=== PATIENT | male | born 1975 | race African-American/Black ===

== ENCOUNTER 2017-09-09 12:33 | Emergency (ER) | payer OTHER ==
[~2017-09-09] VITALS: Ht 182.9 cm; Wt 101.2 kg
[~2017-09-09 12:33] MED LIST: ATORVASTATIN CA10 MG PO; LEVEMIR100 UNIT/1; LISINOPRIL10 MG; LISINOPRIL10 MG PO; NEXIUM40 MG PO; NOVOLOG100 UNITS/; PRAVASTATIN SOD10 MG PO
--- OUTSIDE RECORDS SUMMARY | 2017-09-09 12:36 | XMS REPORT | Summary of Care ---
Author Author Lisa Garcia M.A. Unknown Address [facility] Phone Unavailable Care Team Providers Care Russian Language Professor Name Role Phone JEFF BANGURA M.D. Unavailable Unavailable VIRGIL SOLIS, RIMA BARTON Unavailable Unavailable SHEIKH IRMA [place], NATHANAEL Unavailable Unavailable Unavailable Unavailable Functional Status Name Dates Details Functional status health issues are not documented Status: Name Dates Details Cognitive status health issues are not documented Status: Problems Name Dates Details Adhesive capsulitis of shoulder (726.0, M75.00) Status: Active Adhesive capsulitis of right shoulder (726.0, M75.01) Status: Active Medications Name Dates Details Pennsaid 2 % Transdermal Solution 2 pumps twice daily apply to both affected areas Quantity: 2 JEFF BANGURA M.D. * Start : 07-Aug-2014 Active 112 GM Pump Btl Lisinopril 40 MG Oral Tablet TAKE 1 TABLET DAILY. * Refills: 0 Active NexIUM CPDR TAKE 1 CAPSULE ONCE DAILY. * Refills: 0 Active NovoLOG 100 UNIT/ML Subcutaneous Solution INJECT SUBCUTANEOUSLY DIRECTED. * Refills: 0 Active Atorvastatin Calcium TABS TAKE 1 TABLET DAILY. * Refills: 0 Active Meloxicam 7.5 MG Oral Tablet TAKE 1 TABLET DAILY WITH FOOD. * Quantity: 30 Refills: 3 JEFF BANGURA M.D. * Start : 30-Apr-2017 Active MethylPREDNISolone 4 MG Oral Tablet ONE TABLE TWICE DAILY * Quantity: 28 Refills: 0 JEFF BANGURA M.D. * Start : 30-Apr-2017 Active Meloxicam 7.5 MG Oral Tablet TAKE 1 TABLET DAILY WITH FOOD. * Quantity: 30 Refills: 3 JEFF BANGURA M.D. * Start : 01-Jul-2017 Active Allergies and Adverse Reactions Name Dates Details Benadryl (Allergy) Status: Active Benadryl (Allergy) Reaction: Itching Status: Active Past Medical History Name Dates Details History of Bipolar disorder (296.80, F31.9) Status: Resolved History of diabetes mellitus (V12.29, Z86.39) Status: Resolved History of essential hypertension (V12.59, Z86.79) Status: Resolved History of hepatitis (V12.09, Z86.19) Status: Resolved History of hyperlipidemia (V12.29, Z86.39) Status: Resolved Procedures Procedure Dates Details Procedures not documented Immunization Name Dates Details Immunizations not documented Family History Name Dates Details Family history of systemic lupus erythematosus (V19.4, Z82.69) Status: Active Social History Name Dates Details - Status: Name Dates Details Former smoker Vital Signs Date Test Result Details No Known Vitals to report Results Date Description Value Details [id number] [U] XRAY SHOULDER MIN 2 VWS RIGHT [id number] XR SHOULDER MIN 2 VWS RIGHT Images acquired, not reported on this accession number. Plan of Care Name Dates Details Planned Observations Planned Goals not documented Instructions Name Dates Details Instructions not documented Encounters Appointment; JEFF BANGURA M.D. Encounter Diagnosis: Problem not documented On: 25-Nov-2015 11:30 Appointment; [facility] Encounter Diagnosis: Problem not documented On: 17-Feb-2016 11:00 Appointment; [facility] Encounter Diagnosis: Problem not documented On: 09-Mar-2016 9:30 Appointment; NATHANAEL LUCIANO M.D. Encounter Diagnosis: Problem not documented On: 23-Jun-2016 8:00 Appointment; ANNABELLE BAILEY M.D. Encounter Diagnosis: Problem not documented On: 30-Jul-2016 13:00 Appointment; [facility] Encounter Diagnosis: Problem not documented On: 14-Sep-2016 8:30 Appointment; [facility] Encounter Diagnosis: Problem not documented On: 12-Apr-2017 9:30 Appointment; ER[facility] Encounter Diagnosis: Problem not documented On: 20-Apr-2017 15:15 Appointment; JEFF BANGURA M.D. Encounter Diagnosis: Problem not documented On: 29-Apr-2017 15:15 Appointment; JEFF BANGURA M.D. Encounter Diagnosis: Problem not documented On: 01-Jul-2017 13:45 Appointment; JEFF BANGURA M.D. Encounter Diagnosis: Problem not documented On: 22-Jul-2017 14:30
[2017-09-09] MEDS ORDERED: ACETAMINOPHEN/CODEINE ELIX 120-12 MG/5 ML UDC PO ONE (13:00)
[2017-09-09] MEDS ORDERED: DEXAMETHASONE SOD PHOS 10 MG/1 ML VIAL INJ ONE (13:00)
[2017-09-09] MEDS: ALBUTEROL SULF 0.083% NEB SOLN 3 ML NEB NEB STA (13:10)
[2017-09-09] MEDS: IPRATROPIUM BROMIDE 0.02% 2.5 ML NEB NEB STA (13:10)
[2017-09-09 13:33] LABS: INFLUENZAE A&B ANTIGEN (RAPID) NEGATIVE (NEGATIVE); STREPTOCOCCUS GRP A ANTIGEN NEGATIVE (NEGATIVE)
--- NOTE | 2017-09-09 14:43 | Diagnostic Imaging Report ---
PROCEDURE: X-RAY CHEST, TWO VIEWS COMPARISON: 12/09/2016. INDICATIONS: CHEST PAIN FROM COUGH FINDINGS: LUNGS: No consolidations or edema. PLEURA: No effusions or pneumothorax. HEART \T\ MEDIASTINUM: The heart is within normal size-limits. BONES \T\ SOFT TISSUES: No acute findings. CONCLUSION: No acute thoracic abnormality. Dictated by: Marcos Hood M.D. on 09/09/2017 at 14:44 Electronically approved by: Marcos Hood M.D. on 09/09/2017 at 14:44
== END 2017-09-09 15:14 | disposition home or self-care (01) ==
LOC: ER 12:33
DX: J20.9 Acute bronchitis, unspecified (principal)
CPT/HCPCS: 71046; 83518; 87070; 87400; 93005; 94640; 96372; 99284; J1100

== ENCOUNTER 2017-09-14 12:18 | Emergency (ER) | payer OTHER ==
[~2017-09-14] VITALS: Ht 182.9 cm; Wt 101.2 kg
--- OUTSIDE RECORDS SUMMARY | 2017-09-14 12:21 | XMS REPORT ---
[facility] Address Unknown Phone Unavailable Care Team Providers Care Apartment Rental Agent Name Role Phone ARON ALEX Unavailable Unavailable Problems This patient has no known problems. Allergies, Adverse Reactions, Alerts This patient has no known allergies or adverse reactions. Medications This patient has no known medications. Results Test Description Test Time Test Comments Text Results Atomic Results Result Comments CHEST 2 VIEWS [place] [address] Patient Name: NESTOR HARDWICK MR #: [id number] : 1975 Age/Sex: 42/M Req #: [id number] Adm Physician: Ordered by: DARIAN LYON CASH APPLICATIONS COORDINATOR Report #: [id number] Location: ER Room/Bed: Procedure: [id number] DX/CHEST 2 VIEWS Exam Date: 09/09/17 Exam Time: 1420 REPORT STATUS: Signed PROCEDURE: X-RAY CHEST, TWO VIEWS COMPARISON: 12/09/2016. INDICATIONS: CHEST PAIN FROM COUGH FINDINGS: LUNGS: No consolidations or edema. PLEURA: No effusions or pneumothorax. HEART T MEDIASTINUM: The heart is within normal size-limits. BONES T SOFT TISSUES: No acute findings. CONCLUSION: No acute thoracic abnormality. Dictated by: Jeff Babin M.D. on 09/09/2017 at 14:44 Electronically approved by: Jeff Babin M.D. on 09/09/2017 at 14:44 Dictated By: JEFF BABIN MD 144 Transcribed By: RASHEED on 09/09/17 144 COPY TO: DARIAN LYON NP
--- OUTSIDE RECORDS SUMMARY | 2017-09-14 12:21 | XMS REPORT | Continuity of Care Document ---
Author Author [facility] Organization [facility] Address [address] [place] [address] Phone Unavailable Care Team Providers Care Geriatrics Physician Name Role Phone NONSTAFF PCP Unavailable Insurance Providers Guarantor Netsor Hardwick Address [address] [facility] [address] [place] [address] Email N Payer [employer] Policy Number [id number] Subscriber's Name Nestor Hardwick Relationship 18 Self / Same As Patient Group Name UNEMPLOYED Effective Date 08 Advance Directives Directive Response Recorded Date/Time Does the patient have an advance directive? No 07/06/13 8:11pm If yes, is advance directive on file with [facility]? No 07/06/13 8:11pm If not on file with [facility] will patient provide a copy? Yes 06/29/16 5:21pm Do you have a Directive to Physician? No 09/09/17 12:40pm Do you have a Medical Power of Battery Hand? No 09/09/17 12:40pm Do you have an out of hospital Do Not Resuscitate Order? No 09/09/17 12:40pm Do you have any special needs we should be aware of? No 09/09/17 12:40pm Do you have a support person here with you today? No 09/09/17 12:40pm Did patient receive Notice of Privacy Practices? Yes 09/09/17 12:40pm Did patient receive patient rights and responsibilities? 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 Unstable angina Unknown Medications Current Home Medications Medication Dose Units Route Directions Days Qty Instructions Start Date Esomeprazole Magnesium (Nexium) 40 Mg Capsule.dr 40 Mg Oral Daily PROTONIX THERAPEUTIC SUBSTITUTE FOR NEXIUM PER [facility] Insulin Aspart (Novolog) 100 Units/Ml Ml Lisinopril 10 Mg Tablet 40 Mg Oral Daily 30 Tab Pravastatin Sodium 10 Mg Tablet 40 Mg Oral Daily Past Home Medications Medication Directions Ordered Status Atorvastatin Calcium 10 Mg Tablet, Unknown Dose Oral Today At 9:00PM Discontinued Insulin Detemir (Levemir) 100 Unit/1 Ml Vial, Discontinued Lisinopril 10 Mg Tablet, Discontinued Social History Social History Problem Response Recorded Date/Time Onset Date Status Hx Psychiatric Problems Yes 12/09/2016 8:41pm Not Applicable Not Applicable Hx Depression Yes 12/09/2016 8:41pm Not Applicable Not Applicable Hx Alcohol Use No 12/09/2016 8:41pm Not Applicable Not Applicable Hx Substance Use Treatment No 12/09/2016 8:41pm Not Applicable Not Applicable Hx Physical Abuse No 12/09/2016 8:41pm Not Applicable Not Applicable Smoking Status Start Date Stop Date Current every day smoker Hospital Discharge Instructions No hospital discharge instruction information available. Plan of Care Discharge Date 09/09/17 3:14pm Disposition HOME, SELF-CARE Condition at Discharge Stable Instructions/Education Provided Bronchitis (Acute) - Adult Forms Provided Work/School Excuse Prescriptions See Medication Section Referrals Solomon Fonseca Additional Instructions/Education 1. increase oral fluids 2. tylenol and motrin as needed for fever pain 3. follow up with your doctor in 1-2 days without fail 4. return to ed as needed Functional Status No functional status information available. Allergies, Adverse Reactions, Alerts Allergen Type Severity Reaction Status Last Updated diphenhydramine HCl Allergy Unknown Active 12/09/16 Immunizations No immunization information available. Vital Signs Acute Vital Signs Vital Response Date/Time Temperature (Fahrenheit) 97.5 degrees F (97.6 - 99.5) 12/11/2016 12:00pm Pulse Pulse Rate (adult) 78 bpm (60 - 90) 09/09/2017 1:10pm Respiratory Rate 20 bpm (12 - 24) 09/09/2017 1:10pm Blood Pressure 127/78 mm Hg 12/11/2016 12:00pm Height 6 ft 0 in 09/09/2017 12:50pm Weight 223 lb 09/09/2017 12:50pm Body Mass Index 30.2 kg/m^2 09/09/2017 12:50pm Results Laboratory Results Test Name Result Units Flags Reference Collection Date/Time Result Date/ Time Comments White Blood Count 5.45 x10e3/uL 4.8-10.8 12/10/2016 6:05am 12/10/2016 6 :40am Red Blood Count 5.07 x10e6/uL 4.3-5.7 12/10/2016 6:05am 12/10/2016 6: 40am Hemoglobin 15.5 g/dL 14.0-18.0 12/10/2016 6:0512/10/2016 6:40am Hematocrit 42.0 % 38.2-49.6 12/10/2016 6:0512/10/2016 6:40am Mean Corpuscular Volume 82.8 fL 81-99 12/10/2016 6:05am 12/10/2016 6: 40am Mean Corpuscular Hemoglobin 30.6 pg 28-32 12/10/2016 6:05am 12/10/2016 6:40am Mean Corpuscular Hemoglobin Concent 36.9 g/dL H 31-35 12/10/2016 6:05am 12/10/2016 6:40am Red Cell Distribution Width 12.1 % 11.7-14.4 12/10/2016 6:05am 2016 6:40am Platelet Count 139 x10e3/uL L 140-360 12/10/2016 6:05am 12/10/2016 6: 40am Neutrophils (%) (Auto) 29.2 % L 38.7-80.0 12/10/2016 6:05am 12/10/2016 6 :40am Lymphocytes (%) (Auto) 61.3 % H 18.0-39.1 12/10/2016 6:0512/10/2016 6 :40am Monocytes (%) (Auto) 6.2 % 4.4-11.3 12/10/2016 6:05am 12/10/2016 6: 40am Eosinophils (%) (Auto) 2.0 % 0.0-6.0 12/10/2016 6:0512/10/2016 6: 40am Basophils (%) (Auto) 0.9 % 0.0-1.0 12/10/2016 6:05am 12/10/2016 6:40am IM GRANULOCYTES % 0.4 % 0.0-1.0 12/10/2016 6:05am 12/10/2016 6:40am Neutrophils # (Auto) 1.6 L 2.1-6.9 12/10/2016 6:05am 12/10/2016 6: 40am Lymphocytes # (Auto) 3.3 H 1.0-3.2 12/10/2016 6:0512/10/2016 6: 40am Monocytes # (Auto) 0.3 0.2-0.8 12/10/2016 6:05am 12/10/2016 6:40am Eosinophils # (Auto) 0.1 0.0-0.4 12/10/2016 6:05am 12/10/2016 6:40am Basophils # (Auto) 0.1 0.0-0.1 12/10/2016 6:05am 12/10/2016 6:40am Absolute Immature Granulocyte (auto 0.02 x10e3/uL 0-0.1 12/10/2016 6: 05am 12/10/2016 6:40am Prothrombin Time 12.7 seconds 11.9-14.5 12/10/2016 6:05am 12/10/2016 6: 53am Prothromb Time International Ratio 0.91 12/10/2016 6:05am 2016 6:53am Oral Anticoagulant Therapy INR Values: 1. Low Intensity Therapy 1.5 - 2.0 2. Moderate Intensity Therapy 2.0 - 3.0 3. High Intensity Therapy(1) 2.5 - 3.5 4. High Intensity Therapy(2) 3.0 - 4.0 5. Panic Value INR > 5.0 Activated Partial Thromboplast Time 25.6 seconds 23.8-35.5 12/09/2016 2: 10pm 12/09/2016 2:44pm Urine Color YELLOW YELLOW 12/09/2016 2:10pm 12/09/2016 2:42pm Urine Clarity CLEAR CLEAR 12/09/2016 2:10pm 12/09/2016 2:42pm Urine Specific [place] 1.020 1.010-1.025 12/09/2016 2:10pm 2016 2:42pm Urine pH 5 5 - 7 12/09/2016 2:10pm 12/09/2016 2:42pm Urine Leukocyte Esterase NEGATIVE NEGATIVE 12/09/2016 2:10pm 2016 2:42pm Urine Nitrite NEGATIVE NEGATIVE 12/09/2016 2:10pm 12/09/2016 2:42pm Urine Protein NEGATIVE NEGATIVE 12/09/2016 2:10pm 12/09/2016 2:42pm Urine Glucose (UA) 3+ H NEGATIVE 12/09/2016 2:10pm 12/09/2016 2:42pm Urine Ketones NEGATIVE NEGATIVE 12/09/2016 2:10pm 12/09/2016 2:42pm Urine Urobilinogen 0.2 mg/dL 0.2 - 1 12/09/2016 2:10pm 12/09/2016 2: 42pm Urine Bilirubin NEGATIVE NEGATIVE 12/09/2016 2:10pm 12/09/2016 2: 42pm Urine Blood NEGATIVE NEGATIVE 12/09/2016 2:1012/09/2016 2:42pm Urine WBC 0-5 /HPF 0-5 12/09/2016 2:10pm 12/09/2016 3:04pm Urine RBC 0-5 /HPF 0-5 12/09/2016 2:10pm 12/09/2016 3:04pm Urine Bacteria NONE /HPF NONE 12/09/2016 2:10pm 12/09/2016 3:04pm Urine Epithelial Cells NONE /LPF NONE 12/09/2016 2:1012/09/2016 3: 04pm Urine Mucus FEW H RARE 12/09/2016 2:10pm 12/09/2016 3:04pm Sodium Level 135 mmol/L L 136-145 12/10/2016 6:05am 12/10/2016 7:13am Potassium Level 3.9 mmol/L 3.5-5.1 12/10/2016 6:05am 12/10/2016 7:13am Chloride Level 103 mmol/L 98-107 12/10/2016 6:05am 12/10/2016 7:13am Carbon Dioxide Level 20 mmol/L L -12/10/2016 6:05am 12/10/2016 7: 13am Anion Gap 15.9 mmol/L 8-16 12/10/2016 6:05am 12/10/2016 7:13am Blood Urea Nitrogen 12 mg/dL 7-12/10/2016 6:05am 12/10/2016 7:13am Creatinine 1.27 mg/dL H 0.72-1.25 12/10/2016 6:05am 12/10/2016 7:13am BUN/Creatinine Ratio 9 6-12/10/2016 6:05am 12/10/2016 7:13am Estimat Glomerular Filtration Rate > 60 ML/MIN 60- 12/10/2016 6:05 7:13am Ranges were taken from the National Kidney Disease Education Program and the National Kidney Foundation literature. Reference ranges: 60 or greater: Normal 16-59 (for 3 consecutive months): Chronic kidney disease 15 or less: Kidney failure Glucose Level 306 mg/dL H 74-118 12/10/2016 6:05am 12/10/2016 7:13am Calcium Level 9.5 mg/dL 8.4-10.2 12/10/2016 6:0512/10/2016 7:13am Bedside Glucose 254 mg/dL H 70-120 12/11/2016 11:38am 12/11/2016 12: 05pm Meter ID: [id number] Hemoglobin A1c Percent 13.0 % H 4.0-7.0 12/10/2016 6:05am 12/10/2016 7: 13am Total Bilirubin 0.7 mg/dL 0.2-1.2 12/09/2016 2:10pm 12/09/2016 2:52pm Aspartate Amino Transf (AST/SGOT) 20 IU/L 5-34 12/09/2016 2:102016 2:52pm Alanine Aminotransferase (ALT/SGPT) 28 IU/L 0-55 12/09/2016 2:10 2:52pm Total Protein 7.4 g/dL 6.5-8.1 12/09/2016 2:10pm 12/09/2016 2:52pm Albumin 4.3 g/dL 3.5-5.0 12/09/2016 2:10pm 12/09/2016 2:52pm Globulin 3.1 g/dL 2.3-3.5 12/09/2016 2:10pm 12/09/2016 2:52pm Albumin/Globulin Ratio 1.4 0.8-2.0 12/09/2016 2:10pm 12/09/2016 2: 52pm Alkaline Phosphatase 99 IU/L 40-150 12/09/2016 2:10pm 12/09/2016 2: 52pm Triglycerides Level 793 MG/DL H 0-149 12/10/2016 6:05am 12/10/2016 7: 13am Cholesterol Level 163 MD/DL 0-199 12/10/2016 6:05am 12/10/2016 7:13am Less than 200 mg/dL Low Risk 201 - 239 mg/dL Borderline Risk 240 mg/dl and greater High Risk HDL Cholesterol 30 MG/DL L 40-60 12/10/2016 6:05am 12/10/2016 7:13am Cholesterol/HDL Ratio 5.4 H 3.9-4.7 12/10/2016 6:05am 12/10/2016 7: 13am B-Type Natriuretic Peptide < 10.0 pg/mL 0-100 12/09/2016 2:10pm 2016 3:33pm Creatine Kinase 136 IU/L 30-200 12/10/2016 6:05am 12/10/2016 7:13am Creatine Kinase MB 0.40 ng/mL 0.00-5.00 12/10/2016 6:05am 12/10/2016 7: 25am Troponin I 0.012 ng/mL 0-0.300 12/10/2016 6:05am 12/10/2016 7:25am Thyroid Stimulating Hormone (TSH) 3.319 uIU/mL 0.350-4.940 12/10/2016 6: 05am 12/10/2016 7:25am Influenza Virus Types A,B Antigen NEGATIVE NEGATIVE 09/09/2017 1:05pm 09/09/2017 1:33pm Group A Streptococcus Screen NEGATIVE NEGATIVE 09/09/2017 1:05pm 1:33pm Procedures Procedure Status Date Provider(s) TTE W/DOPPLER COMPLETE Completed 12/09/16 CRISTY NICHOLS MD L HRT ARTERY/VENTRICLE ANGIO Completed 12/09/16 SHADE NICHOLS MD X-ray of chest, two views Active 09/09/17 DARIAN LYON NP Encounters Encounter Location Arrival/Admit Date Discharge/Depart Date Attending Provider Departed Emergency Room [facility] 09/09/17 12:33pm 09/09 3:14pm ARON ALEX MD Discharged Inpatient (obs) [facility] 12/09/16 5:22pm 1:52pm HECTOR PACE MD
[2017-09-14] MEDS ORDERED: DEXAMETHASONE SOD PHOS 10 MG/1 ML VIAL INJ ONE (12:30)
[2017-09-14] MEDS ORDERED: LORATADINE 10 MG TAB PO ONE (12:30)
[2017-09-14] MEDS ORDERED: GUAIFENESIN/DEXTROMETHORPHAN LIQD 5 ML UDC NG ONE (12:30)
[2017-09-14] MEDS ORDERED: ALBUTEROL/IPRATROPIUM 3 ML NEB NEB ONE (12:30)
--- NOTE | 2017-09-14 13:57 | Diagnostic Imaging Report ---
PROCEDURE:CHEST 2 VIEWS TECHNIQUE:PA and lateral chest INDICATION:Cough; chest pain COMPARISON:Patients [facility], , CHEST 2 VIEWS, 09/09/2017, 15:14. FINDINGS: The lungs are clear and symmetrically inflated. No pleural effusions. Normal heart size, mediastinal contour and pulmonary vasculature. CONCLUSION: Stable normal chest. Dictated by: Frank Bullock M.D. on 09/14/2017 at 13:58 Electronically approved by: Frank Bullock M.D. on 09/14/2017 at 13:58
== END 2017-09-14 15:14 | disposition home or self-care (01) ==
LOC: ER 12:18
DX: J40 Bronchitis, not specified as acute or chronic (principal); J30.2 Other seasonal allergic rhinitis; Z87.891 Personal history of nicotine dependence; I10 Essential (primary) hypertension; E11.9 Type 2 diabetes mellitus without complications; E78.5 Hyperlipidemia, unspecified
CPT/HCPCS: 71046; 94640; 99284; J1100

== ENCOUNTER 2018-02-02 14:42 | Observation (INO) | payer OTHER ==
[~2018-02-02] VITALS: Ht 182.9 cm; Wt 108.0 kg
[2018-02-02] MEDS ORDERED: SODIUM CHLORIDE 0.9% 1000 ML BAG IV STA (14:59)
[2018-02-02] MEDS ORDERED: ASPIRIN 81 MG CHEW TAB PO ONE (15:00)
[2018-02-02 15:14] LABS: BASOPHILS % 0.7 % (0.0-1.0); EOSINOPHILS # (AUTO) 0.1 (0.0-0.4); EOSINOPHILS % 1.6 % (0.0-6.0); HEMATOCRIT 44.1 % (38.2-49.6); HEMOGLOBIN 15.6 g/dL (14.0-18.0); LYMPHOCYTES # (AUTO) 3.3 (1.0-3.2); LYMPHOCYTES % 60.2 % (18.0-39.1); MEAN CORPUSCULAR HEMOGLOBIN 29.8 pg (28-32); MEAN CORPUSCULAR HGB CONC 35.4 g/dL (31-35); MEAN CORPUSCULAR VOLUME 84.2 fL (81-99); MONOCYTES # (AUTO) 0.4 (0.2-0.8); MONOCYTES % 6.6 % (4.4-11.3); NEUTROPHILS # (AUTO) 1.7 (2.1-6.9); NEUTROPHILS % 30.7 % (38.7-80.0); PLATELET COUNT 146 x10e3/uL (140-360); RED BLOOD COUNT 5.24 x10e6/uL (4.3-5.7); RED CELL DISTRIBUTION WIDTH 12.1 % (11.7-14.4)
[2018-02-02 15:20] LABS: INR 1.11; PROTHROMBIN TIME 13.5 seconds (11.9-14.5)
[2018-02-02 15:21] LABS: PARTIAL THROMBOPLASTIN TIME 25.2 seconds (23.8-35.5)
[2018-02-02 15:30] LABS: ALANINE AMINOTRANSFERASE 30 IU/L (0-55); ALBUMIN 4.4 g/dL (3.5-5.0); ALBUMIN/GLOBULIN RATIO 1.5 (0.8-2.0); ALKALINE PHOSPHATASE 86 IU/L (40-150); ANION GAP 14.7 mmol/L (8-16); BLOOD UREA NITROGEN 14 mg/dL (7-26); BUN/CREATININE RATIO 12 (6-25); CALCIUM 9.3 mg/dL (8.4-10.2); CARBON DIOXIDE 22 mmol/L (22-29); CHLORIDE 108 mmol/L (98-107); CREATINE KINASE 563 IU/L (30-200); CREATININE, SERUM 1.21 mg/dL (0.72-1.25); EST GLOMERULAR FILTRATION RATE > 60 ML/MIN (60-); GLUCOSE 101 mg/dL (74-118); POTASSIUM 3.7 mmol/L (3.5-5.1); SODIUM 141 mmol/L (136-145)
--- NOTE | 2018-02-02 15:52 | Diagnostic Imaging Report ---
A single frontal view of the chest. HISTORY: Chest pain COMPARISON: None available. DISCUSSION: Portable technique, limits sensitivity of the exam. Tubes/Lines: None Lungs and pleura: The lungs appear well inflated. No evidence of a consolidative pneumonia or pulmonary alveolar edema. No definite pleural effusion or pneumothorax is identified. Heart and mediastinum: The cardiomediastinal silhouette appears unremarkable. Bones: No acute osseous lesion is identified, given this limited exam. IMPRESSION: No acute radiographic abnormality. Signed by: Dr. Andres Ramirez D.O., M.M.M. on 02/02/2018 3:48 PM
--- NOTE | 2018-02-02 16:41 | Diagnostic Imaging Report ---
Exam: Head CT without contrast History: Headache Comparison studies: None Technique: Axial images were obtained from the skull base to the vertex. Coronal and sagittal images reconstructed from the axial data. Dose modulation, iterative reconstruction, and/or weight based adjustment of the mA/kV was utilized to reduce the radiation dose to as low as reasonably achievable. Radiation dose: Total DLP: 921 mGy*cm. Estimated effective dose: DLP x 0.015 Intravenous contrast: None Findings: Scalp: No abnormalities. Bones: No fractures, blastic or lytic lesions. Brain sulci: Appropriate for age. Ventricles: Normal in size and configuration. No hydrocephalus. Extra-axial spaces: No masses, no fluid collection. Parenchyma: No abnormal densities. No masses, hemorrhage, acute or chronic vascular insults. Sellar/suprasellar region: No abnormalities. Craniocervical junction: Patent foramen magnum. No Chiari one malformation. Incidental findings: Incidental pneumatized petrous apices, a normal anatomical variant.. IMPRESSION: No intracranial abnormalities. Signed by: Dr. Marcos Davalos M.D. on 02/02/2018 4:37 PM
[2018-02-02] MEDS ORDERED: MORPHINE SULFATE 2 MG/ML SYR IV PRN (18:15)
[2018-02-02] MEDS ORDERED: DEXTROSE 50% SYRINGE 50 ML IV PRN (18:15)
[2018-02-02] MEDS: INSULIN REGULAR, HUMAN 100 UNIT/1 ML 3ML VIAL SQ SCH (21:00)
[2018-02-02 21:30] VITALS: BP 141/83
[2018-02-02 21:56] VITALS: BP 141/83
--- NOTE | 2018-02-02 22:22 | Consultation ---
DATE OF CONSULTATION: February 02, 2018 CARDIAC CONSULTATION REASON FOR CONSULTATION: Chest pain. HISTORY: A 42-year-old gentleman, very poor historian, known diabetic, hypertensive, hypercholesterolemic. Patient on treatment for many years using insulin. He was in his usual status of health. He was driving. He felt some headache and subsequently, when he was driving, he felt some chest pain, came to emergency room, admitted for further management. Cardiac consultation was obtained. I visited the patient, who is currently pain free. His headache also subsided. He is under quite a lot of stress. He does have typically exertional angina prior to his illness, although he had several episodes of chest pain. He had a cardiac catheterization in November 2016, but it showed 50% mid LAD lesion. Patient takes care of his kids. PAST MEDICAL HISTORY 1. Hypertension. 2. Diabetes mellitus for 20 years, on insulin. 3. Hypercholesterolemia. 4. Ex-smoker, stopped in 2015. SOCIAL HISTORY: He is ex-smoker. Quit in 2015. He does not drink alcohol. He takes care of his kids. FAMILY HISTORY: Mother doing well. Father of unknown cause. Grandfather and grandmother had history of myocardial infarction at young age. HOME MEDICATIONS 1. Nexium 40 mg a day. 2. Insulin sliding scale, use 2 injections per day. 3. Lisinopril 40 mg a day. 4. Pravastatin 40 mg a day. 5. Insulin use 2 injections per day. He does not know what type of insulin 18 units twice a day most of the time. ALLERGIES: BENADRYL WITH QUESTIONABLE ALLERGY TYPE. REVIEW OF SYSTEMS GENERAL: No fever. No chills. HEENT: Unremarkable. PULMONARY: No cough. No hemoptysis. CARDIAC: As per above. GI: No hematemesis. No melena. : No hematuria. No dysuria. HEMATOLOGICAL: No easy bruising or bleeding. ID: No infectious problem. NEUROLOGIC: No numbness, no tingling. SKIN: No rashes. PHYSICAL EXAM GENERAL: Well-built gentleman. VITALS: Height of 6 feet. Weight of 230 pounds. Blood pressure 130/80 equal in both arms. Heart rate of 70. Respiratory rate of 18. HEENT: Pupils are equal, reactive. NECK: No elevation of jugular venous pulsation. No bruit. CHEST: Clear to auscultation and percussion. HEART: PMI 5th left intercostal space, 1st and 2nd heart sounds. ABDOMEN: Soft with good bowel sounds. EXTREMITIES: No cyanosis or clubbing. No edema. NEUROLOGIC: Nonfocal. IMPRESSIONS AND PLAN 1. Patient came with headache. 2. Patient subsequently developed chest pain, seems totally atypical for coronary artery disease. 3. Patient is hypertensive, diabetic, hypercholesterolemic, although these are risk factors for coronary artery disease. Cardiac-romero, recommendation will do a stress test in the morning, will review his old cardiac cath from 2017. Will check lipid profile. Will put patient on aspirin. Serial cardiac enzymes. Job#: [id number] CQ
[2018-02-03 00:18] LABS: CREATINE KINASE MB < 1.00 ng/mL (0-4.3)
[2018-02-03 00:55] VITALS: BP 123/58
[2018-02-03 01:09] LABS: CREATINE KINASE 449 IU/L (30-200)
[2018-02-03 05:02] LABS: BASOPHILS # (AUTO) 0.1 (0.0-0.1); BASOPHILS % 0.9 % (0.0-1.0); EOSINOPHILS # (AUTO) 0.2 (0.0-0.4); EOSINOPHILS % 2.7 % (0.0-6.0); HEMATOCRIT 42.6 % (38.2-49.6); HEMOGLOBIN 14.7 g/dL (14.0-18.0); LYMPHOCYTES # (AUTO) 3.5 (1.0-3.2); LYMPHOCYTES % 64.2 % (18.0-39.1); MEAN CORPUSCULAR HEMOGLOBIN 29.7 pg (28-32); MEAN CORPUSCULAR HGB CONC 34.5 g/dL (31-35); MEAN CORPUSCULAR VOLUME 86.1 fL (81-99); MONOCYTES # (AUTO) 0.5 (0.2-0.8); MONOCYTES % 8.6 % (4.4-11.3); NEUTROPHILS # (AUTO) 1.3 (2.1-6.9); NEUTROPHILS % 23.6 % (38.7-80.0); PLATELET COUNT 120 x10e3/uL (140-360); RED BLOOD COUNT 4.95 x10e6/uL (4.3-5.7); RED CELL DISTRIBUTION WIDTH 12.2 % (11.7-14.4)
[2018-02-03 05:29] VITALS: BP 133/74
[2018-02-03 05:35] LABS: ALANINE AMINOTRANSFERASE 25 IU/L (0-55); ALBUMIN 3.7 g/dL (3.5-5.0); ALBUMIN/GLOBULIN RATIO 1.4 (0.8-2.0); ALKALINE PHOSPHATASE 83 IU/L (40-150); ANION GAP 14.8 mmol/L (8-16); BLOOD UREA NITROGEN 15 mg/dL (7-26); BUN/CREATININE RATIO 13 (6-25); CALCIUM 8.8 mg/dL (8.4-10.2); CARBON DIOXIDE 23 mmol/L (22-29); CHLORIDE 109 mmol/L (98-107); CHOL/HDL RATIO 6.8 (3.9-4.7); CHOLESTEROL 183 MD/DL (0-199); CREATINE KINASE 424 IU/L (30-200); CREATININE, SERUM 1.14 mg/dL (0.72-1.25); EST GLOMERULAR FILTRATION RATE > 60 ML/MIN (60-); GLUCOSE 166 mg/dL (74-118); HDL CHOLESTEROL 27 MG/DL (40-60); LDL CHOLESTEROL 101 MG/DL (60-130); POTASSIUM 3.8 mmol/L (3.5-5.1); SODIUM 143 mmol/L (136-145); TRIGLYCERIDES 276 MG/DL (0-149)
[2018-02-03 06:03] LABS: CREATINE KINASE MB < 1.00 ng/mL (0-4.3)
[2018-02-03 07:52] VITALS: BP 119/66
[2018-02-03 08:00] VITALS: BP 119/66
[2018-02-03] MEDS: LISINOPRIL 20 MG TAB PO SCH ×2 (08:22→08:24)
[2018-02-03] MEDS ORDERED: SODIUM CHLORIDE 0.9% 1000ML 1,000 ML IV SCH (08:45)
[2018-02-03] MEDS ORDERED: PANTOPRAZOLE SOD 40 MG TABEC PO SCH (09:00)
[2018-02-03] MEDS ORDERED: LISINOPRIL 10 MG TAB PO SCH (09:00)
[2018-02-03] MEDS ORDERED: NON-FORMULARY MEDICATION (Pravastatin Sodium 40 MG) PO SCH (09:00)
[2018-02-03] MEDS ORDERED: ASPIRIN 325 MG TAB EC PO SCH (09:00)
[2018-02-03] MEDS ORDERED: FAMOTIDINE 20 MG TAB PO SCH (09:00)
--- NOTE | 2018-02-03 09:08 | History and Physical ---
PRIMARY CARE PHYSICIAN: Dr. Argueta (sp?) CHIEF COMPLAINT: Headache and chest pain. HISTORY OF PRESENT ILLNESS: This is a 42-year-old man with history of hypertension, now developing left-sided chest pain without any radiation or shortness of breath. He did have mild dizziness and nausea. He continues to have diffuse headache at this time. He had a left heart catheterization about 1 year ago showed 50% blockage, but no stent was placed. PAST MEDICAL HISTORY: Coronary artery disease, hypertension, hyperlipidemia, diabetes mellitus type 2. PAST SURGICAL HISTORY: Left heart catheterization. ALLERGIES: PER ELECTRONIC MEDICAL RECORD. FAMILY/SOCIAL HISTORY: Patient is single. He has no alcohol or illicits. Does not work. Patient has a history of cigarette use. MEDICATIONS: Per electronic medical record. REVIEW OF SYSTEMS: Denies any shortness of breath, fever, chills, sweats, nausea, vomiting, diarrhea, vision changes. PHYSICAL EXAMINATION: VITAL SIGNS: Have been reviewed. GENERAL APPEARANCE: Tired-appearing man resting in bed. HEENT: Anicteric. CARDIOVASCULAR: Normal S1 and S2. No murmurs audible. LUNGS: Good breath sounds. ABDOMEN: Soft, nontender, nondistended. EXTREMITIES: No edema or calf tenderness. NEUROLOGICAL: Alert and oriented x3. Moving all extremities. SKIN: Dry. PSYCHIATRIC: Flat affect. LABS: Reviewed. MEDICATIONS: Reviewed. ASSESSMENT AND PLAN: This is a 42-year-old man. 1. Chest pain. 2. Acute rhabdomyolysis. 3. Diabetes mellitus type 2. 4. Hypertension. 5. History of cigarette use. 6. Hyperlipidemia. 7. Coronary artery disease. PLAN: 1. Rehydrate patient. 2. Will trend the enzyme. 3. Follow up stress testing. 4. Follow up CPK levels. 5. Continue PPI. 6. Utilize SCD. Job#: [id number]
[2018-02-03 11:25] VITALS: BP 124/72
[2018-02-03] MEDS: INSULIN REGULAR, HUMAN 100 UNIT/1 ML 3ML VIAL SQ SCH (11:30)
--- NOTE | 2018-02-03 12:16 | Cardiology Report ---
DATE OF STUDY: February 03, 2018 TITLE: CARDIAC STRESS TEST TECHNICAL DETAILS: The protocol is a Hammad with target heart rate of 155 per minute. RESULTS 1. Patient exercised for a total of 9 minutes and 1 second. 2. Heart rate increased from 73 to 155 per minute. 3. Blood pressure increased from 120/80 to 156/82. 4. No chest pain. 5. No EKG changes. IMPRESSION: Negative cardiac stress test with good exercise tolerance. Limitations are discussed and explained. Job#: [id number] SUB
[2018-02-03] MEDS ORDERED: ASPIR 8181 MG PO (12:35)
[2018-02-03 13:59] LABS: CREATINE KINASE 393 IU/L (30-200)
[2018-02-03] MEDS ORDERED: PRAVASTATIN 20 MG TAB PO SCH (21:00)
--- NOTE | 2018-02-04 06:07 | Discharge Summary ---
PRINCIPAL DIAGNOSES 1. Atypical chest pain. 2. Acute rhabdomyolysis. 3. Diabetes mellitus type 2. 4. Hypertension. 5. History of cigarette use. 6. Hyperlipidemia. 7. Coronary artery disease. SECONDARY DIAGNOSIS: Hypertension. CHIEF COMPLAINT: Chest pain. HISTORY OF PRESENT ILLNESS: A 42-year-old man with chest pain. Refer to H and P for further details. HOSPITAL COURSE: Patient was found to have chest pain. Cardiac enzymes were negative. Stress testing was obtained which was negative. Patient had elevated creatine kinase levels which improved from 563 down to 393. Patient was subsequently discharged home with plan to follow up with 1. Primary care doctor in 1 week. 2. Cardiology in 1 week. CONDITION ON DISCHARGE: Stable and improved. DISCHARGE LOCATION: Home. KAYLEE GAMBINO MD Job#: [id number]
== END 2018-02-03 13:05 | disposition home or self-care (01) ==
LOC: ER 14:42 → ERHOLD 18:01 → IMCU 20:55
PROVIDERS: ADMIT Internal Medicine; ATTEND Internal Medicine
DX: R07.89 Other chest pain (principal); G43.909 Migraine, unspecified, not intractable, without status migrainosus; G44.229 Chronic tension-type headache, not intractable; I10 Essential (primary) hypertension; E11.9 Type 2 diabetes mellitus without complications; E78.5 Hyperlipidemia, unspecified; Z88.8 Allergy status to other drugs, medicaments and biological substances; I25.10 Atherosclerotic heart disease of native coronary artery without angina pectoris; M62.82 Rhabdomyolysis; Z87.891 Personal history of nicotine dependence; E78.00 Pure hypercholesterolemia, unspecified; Z79.4 Long term (current) use of insulin
CPT/HCPCS: 36415 ×2; 70450; 71045; 80053 ×2; 80061; 82270; 82550 ×2; 82553 ×2; 82948 ×2; 83036; 84443; 84484 ×2; 85025 ×2; 85610; 85730; 93005; 93017; 99284; G0378 ×2; J7030 ×2; S0164

== ENCOUNTER 2018-07-29 11:57 | Emergency (ER) | payer OTHER ==
[~2018-07-29] VITALS: Ht 365.8 cm; Wt 108.0 kg
[~2018-07-29 11:57] MED LIST changes: +ASPIR 8181 MG PO
--- OUTSIDE RECORDS SUMMARY | 2018-07-29 12:01 | XMS REPORT | Summary of Care ---
Author Author [facility] Organization [facility] Address Unknown Phone Unavailable Encounter WILY Rivera(PIOTR) [id number] Date(s): 12/08/17 - 12/08/17 [facility] [address] [place] [address]- [facility] [phone] Encounter Diagnosis Perianal venous thrombosis (Final) - 12/14/17 Dietary counseling and surveillance (Final) - Type 2 diabetes mellitus with diabetic chronic kidney disease (Final) - Hypertensive chronic kidney disease with stage 1 through stage 4 chronic kidney disease, or unspecified chronic kidney disease (Final) - Chronic kidney disease, stage 2 (mild) (Final) - terminal operator (current) use of insulin (Final) - Discharge Disposition: Home or Self Care Attending Physician: Robbie Houston MD Referring Physician: Robbie Houston MD Vital Signs Most recent to 1 oldest [Reference Range]: Height 182.88 cm (12/08/17 10:33 AM) Blood Pressure 117/68 mmHg [90-140/60-90 mmHg] (12/08/17 10:33 AM) Respiratory Rate 16 BRMIN [14-20 BRMIN] (12/08/17 10:33 AM) Peripheral Pulse 81 bpm Rate [60-100 bpm] (12/08/17 10:33 AM) Weight 108.273 kg (12/08/17 10:33 AM) Body Mass Index 32.37 m2 (12/08/17 10:33 AM) Problem List Condition Effective Dates Status Health Status Informant Chronic Active constipation(Confirm ed) Chronic hepatitis Resolved C(Confirmed) CKD (chronic kidney Active disease), stage II(Confirmed) Hepatic Resolved cirrhosis(Confirmed) Diabetes mellitus Active type 2(Confirmed) Diabetes(Confirmed) Resolved Hypertension, Active essential(Confirmed) Hiatal hernia with Active GERD(Confirmed) Liver Active fibrosis(Confirmed) Hyperlipidemia(Confi Resolved rmed) Hypertension(Confirm Resolved ed) NAFLD (nonalcoholic Active fatty liver disease)(Confirmed) Obesity(Confirmed) Active Pain of perianal Active area(Confirmed) Allergies, Adverse Reactions, Alerts Substance Reaction Severity Status Benadryl Active Medications NIFEdipine 0.2% lidocaine 5% compound cream =1 appl, TOP, TID, Apply topically to affected area, # 30 gm, 1 Refill(s), payan d to pharmacy Start Date: 12/08/17 Stop Date: 01/05/18 Status: Ordered Results No data available for this section Immunizations Given and Recorded Vaccine Date Status Refusal Reason hepatitis B adult vaccine 02/17/16 Given hepatitis B adult vaccine 10/30/15 Given hepatitis B adult vaccine 07/18/15 Given Procedures No data available for this section Social History Social History Type Response Alcohol Never, Previous treatment: None. Smoking Status Former smoker; Type: Cigarettes; Exposure to Tobacco Smoke self; Cigarette Smoking Last 365 Days Yes; Reg Smoking Cessation Counseling No; Tobacco use per day: 10; Number of years: 25; entered on: 12/08/17 Assessment and Plan No data available for this section
--- OUTSIDE RECORDS SUMMARY | 2018-07-29 12:01 | XMS REPORT | Summary of Care ---
Author Author Sandee Rodriguez Organization Unknown Address Unknown Phone Unavailable Care Team Providers Care Addresser Name Role Phone JEFF BANGURA M.D. Unavailable Unavailable Sandee Rodriguez Unavailable Unavailable RIMA HERMAN MD Unavailable Unavailable SHEIKH IRMA NM, NATHANAEL Unavailable Unavailable WILLEM CORNEJO MD NM, JEFF Gordon Unavailable Unavailable Unavailable Unavailable Functional Status Name [...] 7.5 MG Oral Tablet TAKE 1 TABLET BY MOUTH EVERY DAY WITH FOOD * Quantity: 30 Refills: 0 JEFF BANGURA M.D. * Start : 04-Oct-2017 Active MethylPREDNISolone 4 MG Oral Tablet ONE [...] to report Results Date Description Value Details Results not documented Plan of Care Name Dates Details Planned Observations Planned Goals not documented Planned Encounters Appointment; JEFF BANGURA M.D. On: 07-Jul-2018 11:00 Instructions Name Dates Details Instructions not documented Encounters Appointment; NATHANAEL LUCIANO M.D. Encounter Diagnosis: Problem [...] Diagnosis: Problem not documented On: 22-Jul-2017 14:30 Appointment; ERAN CORDON Encounter Diagnosis: Problem not documented On: 05-Oct-2017 15:15 Appointment; ERAN CORDON Encounter Diagnosis: Problem not documented On: 23-Nov-2017 13:45 Appointment; CRISTINO UNDERWOOD M.D. Encounter Diagnosis: Problem not documented On: 08-Dec-2017 10:00 Appointment; ERAN CORDON Encounter Diagnosis: Problem not documented On: 21-Dec-2017 14:30 Appointment; CRISTINO UNDERWOOD M.D. Encounter Diagnosis: Problem not documented On: 19-Jan-2018 10:15 Appointment; JEFF BANGURA M.D. Encounter Diagnosis: Problem not documented On: 20-Jan-2018 14:00 Appointment; JEFF BANGURA M.D. Encounter Diagnosis: Problem not documented On: 16-Jun-2018 11:30
--- OUTSIDE RECORDS SUMMARY | 2018-07-29 12:01 | XMS REPORT | Continuity of Care Document ---
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 2018 [facility] F/U GI VISIT Active 11/24/2017 [facility] FOLLOW-UP Active 11/12/2017 [facility] F/U Active 03/19/2017 [facility] DDC-F/U VISIT Active 09/03/2016 [facility] CIRRHOSIS Active 08/28/2016 [facility] K74.60 - UNSPECIFIED CIRRHOSIS OF LIVER Active 08/12/2016 [facility] [place] DENTAL PAIN Active 05/17/[address] [facility] [address] HERNANDEZ PT Active 03/09/2016 [facility] FOLLOW UP Active 02/10/2016 [facility] Discharge Diagnosis: Other chest pain 12/22/2015 12/25/2015 [facility] CHEST PAIN Active 12/22/2015 [facility] INJ Active 10/30/2015 [facility] Discharge Diagnosis: Lower abdominal pain, unspecified 09/04/2015 09/07/2015 [facility] WEAKNESS/ DIZZINESS Active 09/04/2015 [facility] LIVER PROTOCOL DX:B18.2=CHRONIC VIRAL HE Active 07/02/2015 [facility] Discharge Diagnosis: Acute upper respiratory infection, unspecified 05/03/2015 05/06/2015 [facility] Discharge Diagnosis: Cough 05/03/2015 05/06/2015 [facility] FLU LIKE SYMPTONS Active 05/03/2015 [facility] BDDC- GASTRO-ESOPHAGEAL REFLUX DISEASE W Active 04/04/2015 [facility] 2 MONTH FOLLOW UP Active 04/04/2015 [facility] DDC-2 WK F/U VISIT Active 03/20/2015 [facility] CARDIAC CLEARANCE Active 10/01/2014 [facility] Discharge Diagnosis: Acute headache 09/29/2014 10/02/2014 [facility] Discharge Diagnosis: Hypertension 09/29/2014 10/02/2014 [facility] HYPERTENSION Active 09/28/2014 [facility] Discharge Diagnosis: Atypical chest pain 09/19/2014 09/22/2014 [facility] V02.62 - HEPATITIS C CAR Active 07/04/2014 [facility] Discharge Diagnosis: Abdominal pain 11/19/2013 11/21/2013 [facility] VOMITING Active 11/19/2013 [facility] HIGH BLOOD PRESSURE Active 09/26/2012 [facility] HEP C Active 07/30/2011 [facility] Chronic constipation Active Problem 2018 [facility] Chronic hepatitis C Resolved Problem 2018 [facility], [facility], [facility] [place] CKD , stage II(<span ID="[id number]">Confirmed</span>) Active Problem 2018 [facility], [facility] Hepatic cirrhosis Resolved Problem 2018 [facility], [facility], [facility] [place] Diabetes mellitus type 2 Active Problem 2018 [facility], [facility], [facility] [place] Diabetes Resolved Problem 2018 [facility], [facility], [facility] [place] Hypertension, essential Active Problem 2018 [facility], [facility] Hiatal hernia with GERD Active Problem 2018 [facility], [facility] Liver fibrosis Active Problem 2018 [facility] Hyperlipidemia Resolved Problem 2018 [facility], [facility], [facility] [place] Hypertension Resolved Problem 2018 [facility], [facility], [facility] [place] NAFLD (<span ID="[id number]">Confirmed</span>) Active Problem 2018 [facility], [facility] Obesity Active Problem 2018 [facility], [facility], [facility] [place] Pain of perianal area Active Problem 2018 [facility] Acid reflux Resolved Problem 04/23/2017 [facility] Hepatitis C Active Problem 02/20/2016 [facility] Hepatitis C Active Problem 03/09/2016 [facility], [facility] [place] Smoking Active Problem 09/17/2016 [facility] Final: Left lower quadrant pain 09/07/2015 [facility] Final: Diarrhea, unspecified 09/07/2015 [facility] Final: Fever, unspecified 09/07/2015 [facility] Final: Essential hypertension 09/07/2015 [facility] Final: Type 2 diabetes mellitus without complications 09/07/2015 [facility] Final: Unspecified cirrhosis of liver 09/07/2015 [facility] Final: Personal history of other infectious and parasitic diseases 09/07/2015 [facility] Final: Personal history of nicotine dependence 09/07/2015 [facility] Dietary counseling and surveillance 2018 [facility] Type 2 diabetes mellitus with diabetic chronic kidney disease 2018 [facility] Hypertensive chronic kidney disease with stage 1 through stage 4 chronic kidney disease, or unspecified chronic kidney disease 2018 [facility] Chronic kidney disease, stage 2 2018 [facility] long term care administrator use of insulin 2018 [facility] CHRONIC VIRAL HEPATITIS C Active [facility] Medications Medication Details Route Status Patient Instructions Ordering Provider Order Date Source Nifedipine =1 appl, TOP, TID, Apply topically to affected area, # 30 gm, 1 Refill(s), called to pharmacy Active 12/08/2017 [facility] POLYETHYLENE GLYCOL 3350 142 MG/ML Oral Solution [Miralax] 17 gm, PO, BID, X 30 day, # 1,020 gm, 11 Refill(s), Pharmacy: [facility]/pharmacy #[id number] Active 11/23/2017 [facility] Nifedipine =1 appl, TOP, TID, Apply topically to affected area, # 30 gm, 1 Refill(s), Pharmacy: [facility]/pharmacy #[id number] Active 11/23/2017 [facility] NovoLIN 70/30 SUB-Q, 0 Refill(s) Active 11/23/2017 [facility] NovoLog SUB-Q, TID-Before Meals, 0 Refill(s) Active 11/23/2017 [facility] atorvastatin PO, Daily, 0 Refill(s) Active 09/14/2016 [facility] Saline Flush 0.9% 10 mL, Route: IVP, Drug Form: INJ, Dosing Weight 115.455, kg, PRN, PRN Line Flush, Start date: 12/22/15 3:02:00 CDT, Duration: 30 day, Stop date: 01/21/16 3:01:00 CDTNotes: (Same as: BD Posiflush) Inactive 12/22/2015 [facility] Dicyclomine Hydrochloride 20 MG Oral Tablet [Bentyl] 20 mg=1 tab, PO, QID-Before Meals, PRN Abdominal Pain, # 20 tab, 0 Refill(s) Active 09/05/2015 [facility] Reglan 10 mg, Route: IVP, Drug form: INJ, ONCE, Dosing Weight 109.091, kg, Priority: STAT, Start date: 09/04/15 19:07:00 CDT, Stop date: 09/04/15 19:07:00 CDT Inactive 09/05/2015 [facility] Sodium Chloride 0.154 MEQ/ML Injectable Solution 1,000 mL, 1000 ml/hr, Infuse Over: 1 hr, Route: IV, 1,000, Drug form: INJ, ONCE, Priority: STAT, Dosing Weight 109.091 kg, Start date: 09/04/15 15:16:00 CDT, Duration: 1 doses or times, Stop date: 09/04/15 15:16:00 CDT Inactive 09/04/2015 [facility] Saline Flush 0.9% 10 mL, Route: IVP, Drug Form: INJ, Dosing Weight 109.091, kg, PRN, PRN Line Flush, Start date: 09/04/15 14:44:00 CDT, Duration: 30 day, Stop date: 10/04/15 14:43:00 CDTNotes: (Same as: BD Posiflush) Inactive 09/04/2015 [facility] Famotidine 20 mg, 2 mL, Route: IVP, Drug form: INJ, ONCE, Dosing Weight 109.091, kg, Priority: STAT, Start date: 09/04/15 14:44:00 CDT, Stop date: 09/04/15 14:44:00 CDTNotes: (Same as: Pepcid) Can be dilute in 5-10cc NS IVP: Slow IV push over at least 2 minutes. Inactive 09/04/2015 [facility] Ondansetron 4 mg, 2 mL, Route: IVP, Drug form: INJ, ONCE, Dosing Weight 109.091, kg, Priority: STAT, Start date: 09/04/15 14:44:00 CDT, Stop date: 09/04/15 14:44:00 CDTNotes: (Same as: Noel) MEDICATION WASTE Product Size: 4 mg Product Wasted: ___ mg Inactive 09/04/2015 [facility] Motrin 800 mg, Route: PO, Drug form: TAB, ONCE, Dosing Weight 109.091, kg, Priority: STAT, Start date: 09/04/15 14:35:00 CDT, Stop date: 09/04/15 14:35:00 CDT Inactive 09/04/2015 [facility] predniSONE 20 mg oral tablet 60 mg=3 tab, PO, Daily, Take 3 tablets for 60 mg dose, X 3 day, # 9 tab, 0 Refill(s), Pharmacy: [facility] [id number] Active 05/03/2015 [facility] benzonatate 200 MG Oral Capsule [Tessalon] 200 mg=1 cap, PO, TID, X 7 day, # 21 cap, 0 Refill(s), Pharmacy: [facility] [id number] Active 05/03/2015 [facility] 200 ACTUAT Albuterol 0.09 MG/ACTUAT Metered Dose Inhaler 2 puff, INHALATION, QID, PRN for wheezing, # 25 gm, 0 Refill(s), Pharmacy: [facility] [id number] Active 05/03/2015 [facility] Ribavirin 600 mg, PO, BID, 0 Refill(s) Active 04/04/2015 [facility] {2 (dasabuvir 250 MG Oral Tablet) / 2 (ombitasvir 12.5 MG / paritaprevir 75 MG / Ritonavir 50 MG Oral Tablet) } Pack [Viekira Son] 0 Refill(s) Active 04/04/2015 [facility] NovoLog SUB-Q, TID-Before Meals, 0 Refill(s) Active 04/04/2015 [facility] Metoclopramide 10 MG Oral Tablet [Reglan] 10 mg, 1 tab, Route: PO, Drug form: TAB, ONCE, Dosing Weight 104.545, kg, Start date: 09/29/14 0:28:00, Stop date: 09/29/14 0:28:00Notes: (Same as: Reglan) Take 30 min before meals Inactive 09/29/2014 [facility] tramadol hydrochloride 50 MG Oral Tablet [Ultram] 1 - 2 tabs, PO, Q4-6H, .(Type PRN Reason Here...), # 30 tab, 0 Refill(s) Active 11/20/2013 [facility] Zofran 4 mg, 2 mL, Route: IVP, Drug form: INJ, ONCE, Dosing Weight 100, kg, Priority: STAT, Start date: 11/19/13 19:41:00, Stop date: 11/19/13 19:41:00Notes: (Same as: Zofran) Inactive 11/20/2013 [facility] Carafate 2 gm, 20 mL, Route: PO, Drug form: SUSP, ONCE, Dosing Weight 100, kg, Start date: 11/19/13 19:41:00, Stop date: 11/19/13 19:41:00Notes: Enteral feeds may interfere with the absorption of this medicat ion. Shake well. Take 1 hr before or 2 hrs after antacids, dairy pdt, minerals & meals. (Same As: Carafate) Inactive 11/20/2013 [facility] GI cocktail 30 mL, Route: PO, Drug Form: SUSP, Dosing Weight 100, kg, ONCE, STAT, Start date: 11/19/13 19:41:00, Stop date: 11/19/13 19:41:00Notes: G.I. Cocktail=antacid with simethicone 22.5 mL - lidocaine visc ous 7.5 mL Inactive 11/20/2013 [facility] Allergies, Adverse Reactions, Alerts Substance Category Reaction Severity Reaction type Status Date Reported Comments Source Williamadryl Assertion Drug allergy Active [facility] Immunizations Immunization Date Given Site Status Last Updated Comments Source hepatitis B adult vaccine 02/17/2016 Right deltoid completed Kaiden [facility] 02/17/2016 Right deltoid completed Kaiden [facility] hepatitis B adult vaccine 10/30/2015 Right deltoid completed hKloe [facility], [facility] 10/30/2015 Right deltoid completed Khloe [facility] hepatitis B adult vaccine 07/18/2015 Left deltoid completed Mian [facility] 07/18/2015 Left deltoid completed Lambert [facility] Results Order Name Results Value Reference Range Date Interpretation Comments Source Liver w Liver vessels Doppler US Liver w Liver vessels Doppler US EXAM: US LIVER WITH DOPPLER DATE: 09/22/2017 10:14 AM CDT INDICATION: - w/ elastography ADDITIONAL INFORMATION: None. COMPARISON: None. TECHNIQUE: Multiplanar grayscale, color Doppler and spectral Doppler ultrasound images of the liver and upper abdomen were obtained. Elastography was performed. FINDINGS: Liver: Craniocaudal length: 14.2 cm. Echogenicity: Normal. Surface nodularity: Smooth Mass (size and location): None. Hepatic and portal vasculature: Hepatic artery: Patent with normal arterial waveform. The peak systolic velocity was 101 cm/s with an RI of 0.62. Right hepatic artery: Patent with normal arterial waveform. Left hepatic artery: Patent with normal arterial waveform. Portal veins: The portal vein is 1.3 cm in diameter. It has hepatopedal flow with a velocity of 35.6 cm/s. The right and left branches are patent. Hepatic veins: All 3 are patent and flow towards the IVC. Bile ducts: Common bile duct diameter: 4.5 mm Intrahepatic ducts: Normal. Gallbladder: Gallstones: None. Gallbladder sludge: None. Gallbladder wall: 1.8 mm in diameter. Pericholecystic fluid: None. Sonographic Zuleta sign: Negative Pancreas: Head and Body: Normal. Tail: Obscured by gas. Spleen: Craniocaudal length: 9.9 cm Mass or focal lesion (size and location): None. Abdominal aorta and IVC: Visualized portions are normal. Ascites: None. Elastography: Eleven samples from the liver were obtained. The average liver stiffness is 5.77 kPa with a standard deviation of 2.02 kPa. IMPRESSION: 1. The liver was normal in appearance. Note that the portal vein was minimally prominent in diameter possibly representing an early sign of portal venous hypertension. 2. There is mild to moderate liver stiffness. 09/22/2017 - - Read by: Susy Duffy MD Dictated Date/time: 09/22/17 11:20 Electronically Signed by: Susy Duffy MD 09/22/17 11:28 FINAL REPORT [facility] Elastography US Elastography US EXAM: US LIVER WITH DOPPLER DATE: 09/22/2017 10:14 AM CDT INDICATION: - w/ elastography ADDITIONAL INFORMATION: None. COMPARISON: None. TECHNIQUE: Multiplanar grayscale, color Doppler and spectral Doppler ultrasound images of the liver and upper abdomen were obtained. Elastography was performed. FINDINGS: Liver: Craniocaudal length: 14.2 cm. Echogenicity: Normal. Surface nodularity: Smooth Mass (size and location): None. Hepatic and portal vasculature: Hepatic artery: Patent with normal arterial waveform. The peak systolic velocity was 101 cm/s with an RI of 0.62. Right hepatic artery: Patent with normal arterial waveform. Left hepatic artery: Patent with normal arterial waveform. Portal veins: The portal vein is 1.3 cm in diameter. It has hepatopedal flow with a velocity of 35.6 cm/s. The right and left branches are patent. Hepatic veins: All 3 are patent and flow towards the IVC. Bile ducts: Common bile duct diameter: 4.5 mm Intrahepatic ducts: Normal. Gallbladder: Gallstones: None. Gallbladder sludge: None. Gallbladder wall: 1.8 mm in diameter. Pericholecystic fluid: None. Sonographic Zuleta sign: Negative Pancreas: Head and Body: Normal. Tail: Obscured by gas. Spleen: Craniocaudal length: 9.9 cm Mass or focal lesion (size and location): None. Abdominal aorta and IVC: Visualized portions are normal. Ascites: None. Elastography: Eleven samples from the liver were obtained. The average liver stiffness is 5.77 kPa with a standard deviation of 2.02 kPa. IMPRESSION: 1. The liver was normal in appearance. Note that the portal vein was minimally prominent in diameter possibly representing an early sign of portal venous hypertension. 2. There is mild to moderate liver stiffness. 09/22/2017 - - Read by: Ssuy Duffy MD Dictated Date/time: 09/22/17 11:20 Electronically Signed by: Susy Duffy MD 09/22/17 11:28 FINAL REPORT [facility] Liver w Liver vessels Doppler US Liver w Liver vessels Doppler US EXAM: US ABDOMEN WITH DOPPLER DATE: 03/16/2017 9:32 AM CDT INDICATION: - with elastography ADDITIONAL INFORMATION: History of chronic hep C COMPARISON: CT liver mass protocol 03/06/2016; MR abdomen 09/01/2016; abdominal ultrasound 07/06/2014. TECHNIQUE: Multiplanar grayscale, color Doppler and spectral Doppler ultrasound of the abdomen. FINDINGS: Liver: Craniocaudal length: 13 cm. Echogenicity: Normal. Surface: Normal. Mass (size and location): None visualized. Please note that the previously noted complex/possibly hemorrhagic/proteinaceous cyst in the right hepatic lobe on prior exams is not visualized on this exam. Hepatic and portal vasculature: Hepatic artery: Patent with antegrade pulsatile flow. Resistive index: main hepatic artery 0.6, right hepatic artery 0.5, left hepatic artery 0.6. Portal veins: Patent with normal hepatopetal monophasic flow. MPV caliber: 1.1 cm. Hepatic veins: Patent with normal hepatofugal multiphasic flow. Splenic artery: Patent with antegrade pulsatile flow. Splenic vein: Patent with normal flow. Collateral: None. Abdominal aorta: Not imaged. Inferior vena cava: Visible portions are normal. Bile ducts: Common bile duct diameter: 0.3 cm. Intrahepatic ducts: Normal. Gallbladder: Gallstones: None. Gallbladder sludge: None. Gallbladder wall: 0.1 cm. Pericholecystic fluid: None. Sonographic Zuleta sign: Absent. Pancreas: Head and uncinate process: Not seen. Body: Normal. Tail: Not seen. Spleen: Size: 11 cm. Mass or focal lesion (size and location): None. Free fluid: None. Other: None. IMPRESSION: 1. No focal hepatic mass lesion. 2. Patent hepatic and portal vasculature with normal waveforms, resistive indices and velocities. 03/16/2017 - - Read by: Farzad Hightower MD Dictated Date/time: 03/16/17 12:19 Electronically Signed by: Farzad Hightower MD 03/16/17 13:31 FINAL REPORT [facility] Elastography US Elastography US EXAM: US ELASTOGRAPHY DATE: 03/16/2017 9:34 AM CDT INDICATION: K76.0 Fatty (change of) liver, not elsewhere classified - K76.0 Fatty (change of) liver, not elsewhere classified ADDITIONAL INFORMATION: None. COMPARISON: Limited comparison with abdominal ultrasound 07/06/2014. TECHNIQUE: Ten elastography samples were obtained from the liver. FINDINGS: Average liver stiffness is 6.82 kPa Standard deviation is 1.19 kPa. IMPRESSION: Mild to moderate fibrosis (Metavir Score F2-F3; 5.7-12.0 kPa). 03/16/2017 - - Read by: Farzad Hightower MD Dictated Date/time: 03/16/17 13:31 Electronically Signed by: Farzad Hightower MD 03/16/17 13:34 FINAL REPORT [facility] CHEM PANEL POC Creatinine 0.8 mg/dL 0.5 - 1.4 09/01/2016 [facility] CHEM PANEL eGFR 129 mL/min/1.73m2 09/01/2016 Result Comment: The eGFR is calculated using the CKD-EPI formula. In most young, healthy individuals the eGFR will be >90 mL/min/1.73m2. The eGFR declines with age. An eGFR of 60-89 may be normal in some populations, particularly the elderly, for whom the CKD-EPI formula has not been extensively validated. Use of the eGFR is not recommended in the following populations: Individuals with unstable creatinine concentrations, including patients and those with serious co-morbid conditions. Patients with extremes in muscle mass or diet. The data above are obtained from the National Kidney Disease Education Program (NKDEP) which additionally recommends that when the eGFR is used in patients with extremes of body mass index for purposes of drug dosing, the eGFR should be multiplied by the estimated BMI. [facility] Abdomen w/wo contrast MRI Abdomen w/wo contrast MRI AP Patient Name: NESTOR HOUSER : 1975; Age: 41 years y/o Male MR: [id number] Study: Abdomen w/wo contrast MRI 09/01/2016 10:32 AM CDT CLINICAL INDICATION: Cirrhosis of the Liver. Patient has been Diabetic for more than 5 years. Exam ordered as follow up. - 20ml Multihance Power Inject @ 2.0ml/sec Lot:[id number] Exp:. Cre:0.8 GFR:130. Tech:Reddy Tejeda. COMPARISON: CT on 03/04/2016 and 09/04/2015 TECHNIQUE: Magnetic resonance imaging of the abdomen was performed with multiplanar reformations obtained before and after the administration of IV contrast. FINDINGS: LIVER: Diffuse and mild signal dropout on the out of phase sequence. Smooth liver contour. Circumscribed structure (1 x 1.3 cm) within hepatic segment 7 demonstrates hyperintense T1 signal as well as layering hyperintense T2 signal. No significant enhancement. INTRAHEPATIC BILE DUCTS: No intrahepatic biliary ductal dilatation. GALLBLADDER: The gallbladder is normal. No evidence of gallstones or wall thickening. COMMON BILE DUCT: The extrahepatic bile duct measures less than 6 mm in maximal diameter. Normal contour and tapering of the common bile duct. SPLEEN: Normal in size and signal. PANCREAS: No mass or ductal dilatation. ADRENALS: No nodules. KIDNEY: The kidneys appear normal without hydronephrosis. AORTA: The abdominal aorta appears normal. IVC: The inferior vena cava regions appear normal. LYMPH NODES: No significant lymphadenopathy. IMPRESSION: Small proteinaceous/hemorrhagic cyst (1 x 1.3 cm) within the right hepatic lobe. Mild hepatic steatosis. SL: [id number] 09/01/2016 - - Read by: Denise Muro MD Dictated Date/time: 09/01/16 15:40 Electronically Signed by: Denise Muro MD 09/01/16 16:10 FINAL REPORT [facility] Liver Protocol w/wo IV contrast CT [facility] Liver Protocol w/wo IV contrast CT Patient Name: NESTOR HOUSER : 1975; Age: 40 years y/o Male MR: [id number] Study: [facility] Liver Protocol w/wo IV contrast CT Comparison: 09/04/2015 CT Radiation Dose DLP 1586.59 mGy-cm Clinical Indication: K74. liver fibrosis;B18.2 chronic hepatis C; Multiple computerized axial tomograms of the abdomen were obtained after administration of oral and 100 mL Omnipaque 300 intravenous contrast. 2-D sagittal and coronal reformation reconstruction images were obtained. Liver imaging protocol was utilized. Lung bases clear. No renal or abdominal ureteral calculi are noted. No obstructive uropathic changes are noted. Mild constipation is noted at the transverse colon. The splenic flexure and visualized proximal descending colon are decompressed. Tiny to small fat filled umbilical hernia. Gallbladder unremarkable. Mild generalized hepatomegaly. The previously described well-defined subcentimeter hypodensity at the dorsal right hepatic lobe is less conspicuous on the present exam albeit not significantly changed in size measuring 10.6 x 8.2 mm. It should be noted that pre and postcontrast attenuation number comparison cannot be performed as the lesion cannot be identified on the precontrast images. No hepatic masses are noted exclusive of this lesion. The caliber of the portal vein is 12 mm. The intrahepatic portal venous branches are patent. The intrahepatic IVC is patent. The hepatic veins are unremarkable. Liver, kidneys, spleen, pancreas and adrenal glands have an otherwise normal CT appearance. No adenopathy, free fluid or pneumoperitoneum. IMPRESSION: 1. The previously described well-defined subcentimeter hypodensity at the dorsal right hepatic lobe is less conspicuous on the present exam demonstrating less contrast with the liver parenchyma albeit not significantly changed in size measuring 10.6 x 8.2 mm. This could represent interval development of internal hemorrhagic or proteinaceous content or interval change in character of the presumed cyst. If there are no contraindications to magnetic resonance imaging, then characterization of this lesion with magnetic resonance imaging of the liver with and without contrast is suggested. 2. Exam is otherwise not significant changed from the previous study. 3. Mild generalized hepatomegaly is persistent. The previously described nodular margin to the liver is less conspicuous on the present study. SL: [id number] 03/06/2016 - - Read by: Sergo Houser MD Dictated Date/time: 03/06/16 13:52 Electronically Signed by: Sergo Houser MD 03/06/16 14:27 [facility] [place] CARDIAC ENZYMES CK MB Index null 0.0 - 2.5 12/22/2015 [facility] CARDIAC ENZYMES Total CK 310 unit/L 12 - 191 12/22/2015 [facility] CARDIAC ENZYMES CK MB null 0.5 - 3.6 12/22/2015 [facility] CARDIAC ENZYMES Troponin-I null 0.00 - 0.40 12/22/2015 [facility] CHEM PANEL eGFR 87 mL/min/1.73m2 12/22/2015 Result Comment: The eGFR is calculated using the CKD-EPI formula. In most young, healthy individuals the eGFR will be >90 mL/min/1.73m2. The eGFR declines with age. An eGFR of 60-89 may be normal in some populations, particularly the elderly, for whom the CKD-EPI formula has not been extensively validated. Use of the eGFR is not recommended in the following populations: Individuals with unstable creatinine concentrations, including patients and those with serious co-morbid conditions. Patients with extremes in muscle mass or diet. The data above are obtained from the National Kidney Disease Education Program (NKDEP) which additionally recommends that when the eGFR is used in patients with extremes of body mass index for purposes of drug dosing, the eGFR should be multiplied by the estimated BMI. [facility] CHEM PANEL Glucose Lvl 150 mg/dL 70 - 99 12/22/2015 [facility] CHEM PANEL BUN 12 mg/dL 7 - 22 12/22/2015 [facility] CHEM PANEL Creatinine Lvl 1.21 mg/dL 0.50 - 1.40 12/22/2015 [facility] CHEM PANEL Potassium Lvl 4.1 meq/L 3.5 - 5.1 12/22/2015 [facility] CHEM PANEL Bili Total 0.5 mg/dL 0.2 - 1.3 12/22/2015 [facility] CHEM PANEL Chloride Lvl 107 meq/L 95 - 109 12/22/2015 [facility] CHEM PANEL Sodium Lvl 141 meq/L 135 - 145 12/22/2015 [facility] CHEM PANEL CO2 27 meq/L 24 - 32 12/22/2015 [facility] CHEM PANEL Calcium Lvl 8.5 mg/dL 8.5 - 10.5 12/22/2015 [facility] CHEM PANEL Albumin Lvl 4.1 g/dL 3.5 - 5.0 12/22/2015 [facility] CHEM PANEL Total Protein 7.6 g/dL 6.4 - 8.4 12/22/2015 [facility] CHEM PANEL B/C Ratio 10 6 - 25 12/22/2015 [facility] CHEM PANEL Alk Phos 112 unit/L 39 - 136 12/22/2015 [facility] CHEM PANEL AST 30 unit/L 0 - 37 12/22/2015 [facility] CHEM PANEL ALT 59 unit/L 0 - 65 12/22/2015 [facility] CHEM PANEL AGAP 11.1 meq/L 10.0 - 20.0 12/22/2015 [facility] CHEM PANEL Globulin 3.5 g/dL 2.7 - 4.2 12/22/2015 [facility] CHEM PANEL A/G Ratio 1.2 0.7 - 1.6 12/22/2015 [facility] HEMATOLOGY Lymphocytes 50.0 % 20.0 - 40.0 12/22/2015 [facility] HEMATOLOGY Basophils 1.2 % 0.0 - 1.0 12/22/2015 [facility] HEMATOLOGY Segs-Bands # 2.3 K/CMM 1.5 - 8.1 12/22/2015 [facility] HEMATOLOGY Eosinophils 3.3 % 0.0 - 4.0 12/22/2015 [facility] HEMATOLOGY Monocytes 7.9 % 2.0 - 12.0 12/22/2015 [facility] Monocytes # 0.5 K/CMM 0.0 - 0.8 12/22/2015 [facility] HEMATOLOGY Eosinophils # 0.2 K/CMM 0.0 - 0.5 12/22/2015 [facility] Lymphocytes # 3.1 K/CMM 1.0 - 5.5 12/22/2015 [facility] Basophils # 0.1 K/CMM 0.0 - 0.2 12/22/2015 [facility] Segs 37.6 % 45.0 - 75.0 12/22/2015 [facility] RBC 5.58 M/CMM 4.70 - 6.10 12/22/2015 [facility] WBC 6.1 K/CMM 3.7 - 10.4 12/22/2015 [facility] Platelet 114 K/CMM 133 - 450 12/22/2015 [facility] Hgb 16.0 g/dL 14.0 - 18.0 12/22/2015 [facility] Hct 48.0 % 42.0 - 54.0 12/22/2015 [facility] MCHC 33.3 g/dL 32.0 - 36.0 12/22/2015 [facility] RDW 13.6 % 11.5 - 14.5 12/22/2015 [facility] MPV 11.1 fL 7.4 - 10.4 12/22/2015 [facility] MCH 28.6 pg 27.0 - 31.0 12/22/2015 [facility] MCV 85.9 fL 80.0 - 94.0 12/22/2015 [facility] Chest 1view DX Chest 1view DX Patient Name: NESTOR HOUSER : 1975; Age: 40 years y/o Male MR: [id number] Study: Chest 1view DX dated 12/22/2015 Clinical Indication: Chest pain; Comparison: 09/04/2015 Cardiac and mediastinal structures are normal. No focal infiltrate identified within the lungs, no edema and no pneumothorax. Bones and soft tissues are unremarkable SL: JOANA 12/22/2015 - - Read by: Curt Middleton MD Dictated Date/time: 12/22/15 03:39 Electronically Signed by: Curt Middleton MD 12/22/15 03:40 FINAL REPORT [facility] URINE AND STOOL UA Urobilinogen <=1.0 mg/dL 0.1 - 1.0 09/04/2015 [facility] URINE AND STOOL UA Turbidity Clear (09/04/15 4:17 PM) Clear 09/04/2015 [facility] URINE AND STOOL UA Spec Grav 1.023 <=1.030 09/04/2015 [facility] URINE AND STOOL UA pH 5.0 5.0 - 8.0 09/04/2015 [facility] URINE AND STOOL UA Leuk Est Negative (09/04/15 4:17 PM) Negative 09/04/2015 [facility] URINE AND STOOL UA Sq Epi Occasional /LPF Few /LPF 09/04/2015 [facility] URINE AND STOOL UA Nitrite Negative (09/04/15 4:17 PM) Negative 09/04/2015 [facility] URINE AND STOOL UA WBC 3 /HPF 0 - 5 09/04/2015 [facility] URINE AND STOOL UA RBC 3 /HPF 0 - 2 09/04/2015 [facility] URINE AND STOOL UA Mucus Few /LPF None Seen /LPF 09/04/2015 [facility] URINE AND STOOL UA Protein Negative mg/dL Negative mg/dL 09/04/2015 [facility] URINE AND STOOL UA Glucose Negative mg/dL Negative mg/dL 09/04/2015 [facility] URINE AND STOOL UA Ketones Negative mg/dL Negative mg/dL 09/04/2015 [facility] URINE AND STOOL UA Bili Negative *NA* (09/04/15 4:17 PM) Negative 09/04/2015 [facility] URINE AND STOOL UA Blood Negative (09/04/15 4:17 PM) Negative 09/04/2015 [facility] URINE AND STOOL UA Color Yellow *NA* (09/04/15 4:17 PM) Yellow 09/04/2015 [facility] CHEM PANEL Amylase Lvl 54 unit/L 25 - 115 09/04/2015 [facility] CHEM PANEL Lipase Lvl 139 unit/L 73 - 393 09/04/2015 [facility] CHEM PANEL Magnesium Lvl 1.5 mg/dL 1.8 - 2.4 09/04/2015 [facility] CHEM PANEL Phosphorus 2.2 mg/dL 2.5 - 4.5 09/04/2015 [facility] ELECTROLYTES AGAP 11.1 meq/L 10.0 - 20.0 09/04/2015 [facility] ELECTROLYTES eGFR 79 mL/min/1.73m2 09/04/2015 Result Comment: The eGFR is calculated using the CKD-EPI formula. In most young, healthy individuals the eGFR will be >90 mL/min/1.73m2. The eGFR declines with age. An eGFR of 60-89 may be normal in some populations, particularly the elderly, for whom the CKD-EPI formula has not been extensively validated. Use of the eGFR is not recommended in the following populations: Individuals with unstable creatinine concentrations, including patients and those with serious co-morbid conditions. Patients with extremes in muscle mass or diet. The data above are obtained from the National Kidney Disease Education Program (NKDEP) which additionally recommends that when the eGFR is used in patients with extremes of body mass index for purposes of drug dosing, the eGFR should be multiplied by the estimated BMI. [facility] ELECTROLYTES Calcium Lvl 8.1 mg/dL 8.5 - 10.5 09/04/2015 [facility] ELECTROLYTES CO2 24 meq/L 24 - 32 09/04/2015 [facility] ELECTROLYTES Creatinine Lvl 1.31 mg/dL 0.50 - 1.40 09/04/2015 [facility] ELECTROLYTES Sodium Lvl 134 meq/L 135 - 145 09/04/2015 [facility] ELECTROLYTES Potassium Lvl 3.1 meq/L 3.5 - 5.1 09/04/2015 [facility] ELECTROLYTES Glucose Lvl 137 mg/dL 70 - 99 09/04/2015 [facility] ELECTROLYTES BUN 8 mg/dL 7 - 22 09/04/2015 [facility] ELECTROLYTES Chloride Lvl 102 meq/L 95 - 109 09/04/2015 [facility] Lymphocytes # 0.8 K/CMM 1.0 - 5.5 09/04/2015 [facility] HEMATOLOGY Segs-Bands # 3.3 K/CMM 1.5 - 8.1 09/04/2015 [facility] Monocytes # 0.5 K/CMM 0.0 - 0.8 09/04/2015 [facility] HEMATOLOGY Eosinophils 0.3 % 0.0 - 4.0 09/04/2015 [facility] HEMATOLOGY Basophils 0.6 % 0.0 - 1.0 09/04/2015 [facility] Lymphocytes 18.1 % 20.0 - 40.0 09/04/2015 [facility] HEMATOLOGY Segs 71.1 % 45.0 - 75.0 09/04/2015 [facility] HEMATOLOGY Monocytes 9.9 % 2.0 - 12.0 09/04/2015 [facility] PTT 31.0 s 22.9 - 35.8 09/04/2015 [facility] INR 1.18 0.85 - 1.17 09/04/2015 [facility] PT 15.3 s 12.0 - 14.7 09/04/2015 [facility] Hgb 15.3 g/dL 14.0 - 18.0 09/04/2015 [facility] MCV 88.6 fL 80.0 - 94.0 09/04/2015 [facility] MCH 29.0 pg 27.0 - 31.0 09/04/2015 [facility] Hct 46.9 % 42.0 - 54.0 09/04/2015 [facility] MCHC 32.7 g/dL 32.0 - 36.0 09/04/2015 [facility] RDW 12.8 % 11.5 - 14.5 09/04/2015 [facility] Platelet 91 K/CMM 133 - 450 09/04/2015 [facility] RBC 5.29 M/CMM 4.70 - 6.10 09/04/2015 [facility] MPV 10.8 fL 7.4 - 10.4 09/04/2015 [facility] WBC 4.7 K/CMM 3.7 - 10.4 09/04/2015 [facility] RAPID Grp A Strep Scr Negative (09/04/15 3:18 PM) Negative 09/04/2015 [facility] VIRAL - SEROLOGY Influ A Negative (09/04/15 3:18 PM) Negative 09/04/2015 [facility] VIRAL - SEROLOGY Influ B Negative (09/04/15 3:18 PM) Negative 09/04/2015 [facility] Abdomen/Pelvis w IV contrast CT Abdomen/Pelvis w IV contrast CT CT SCAN OF THE ABDOMEN AND PELVIS WITH CONTRAST. HX: Clinical Indication: Abdominal pain, acute; nausea, vomiting, diarrhea.. Comparison: CT abdomen pelvis of 07/05/2015. Technique: Helical CT images were obtained from the domes the diaphragms to the symphysis pubis following the administration of intravenous contrast. No p.o. contrast was given. ABDOMEN AND PELVIS: The lung bases are clear. The heart is stable in size. Contracted gallbladder. Hepatocellular disease. Stable small posterior right hepatic cyst is present. The spleen, pancreas, and adrenals are stable in appearance. The kidneys show good, symmetrical, excretion without hydronephrosis. Abundance of stool within the colon. Grossly normal appendix. Small fat- containing umbilical hernia is present. The bladder is nondistended. Tiny fat- containing left inguinal hernia is present. IMPRESSION: 1. No acute abdominal or pelvic process detected. 2. No convincing evidence of acute appendicitis. 3. Hepatocellular disease. Stable small posterior right hepatic cyst is present. 4. Mild constipation. SL: [id number] 09/04/2015 - - Read by: Pastor Contreras MD Dictated Date/time: 09/04/15 20:58 Electronically Signed by: Pastor Contreras MD 09/04/15 21:02 FINAL REPORT [facility] Chest 2 views DX Chest 2 views DX Study: Chest 2 views DX Clinical Indication: Cough and fever Comparison: 05/03/2015 FINDINGS: The cardiac silhouette is normal in size. The lungs are clear and without consolidation or congestion. No pleural effusion or pneumothorax is seen. The osseous structures are unremarkable. IMPRESSION: No acute cardiopulmonary disease. SL: [id number] 09/04/2015 - - Read by: Dm Sylvester MD Dictated Date/time: 09/04/15 15:01 Electronically Signed by: Dm Sylvester MD 09/04/15 15:01 FINAL REPORT [facility] CHEM PANEL eGFR 88 mL/min/1.73m2 07/05/2015 Result Comment: The eGFR is calculated using the CKD-EPI formula. In most young, healthy individuals the eGFR will be >90 mL/min/1.73m2. The eGFR declines with age. An eGFR of 60-89 may be normal in some populations, particularly the elderly, for whom the CKD-EPI formula has not been extensively validated. Use of the eGFR is not recommended in the following populations: Individuals with unstable creatinine concentrations, including patients and those with serious co-morbid conditions. Patients with extremes in muscle mass or diet. The data above are obtained from the National Kidney Disease Education Program (NKDEP) which additionally recommends that when the eGFR is used in patients with extremes of body mass index for purposes of drug dosing, the eGFR should be multiplied by the estimated BMI. [facility] CHEM PANEL POC Creatinine 1.2 mg/dL 0.5 - 1.4 07/05/2015 [facility] Liver Protocol w/wo IV contrast CT Abd Liver Protocol w/wo IV contrast CT : 1975; Age: 40 years y/o Male MR: [id number] Study: [facility] Liver Protocol w/wo IV contrast CT 07/05/2015 8:03 AM AURIST Clinical Indication: Chronic viral hepatitis C; Comparison: None TECHNIQUE: Precontrast, arterial phase, venous phase, and delayed phase images are done through the abdomen. Coronal and sagittal reformats are provided. LOWER CHEST: Bibasilar subsegmental atelectasis is seen No pleural effusion is identified. No pericardial effusion is seen. SOLID ORGANS: No enhancing liver mass is seen. There is a 1.1 cm oval hypodensity in the right posterior liver that remains hypodense on all phases of imaging and likely represents a small cyst. No biliary dilatation is identified. Liver surface is mildly nodular. Hepatic arterial anatomy is conventional. The hepatic artery is patent. No celiac or superior mesenteric artery stenosis is identified. The portal vein, splenic vein, superior mesenteric vein are patent. The hepatic veins are also patent. The spleen is normal in size. No portosystemic collaterals are identified. Bilateral adrenal glands, pancreas, gallbladder, and bilateral kidneys are within normal limits. BOWEL: Imaged large and small bowel are normal in caliber. The appendix is normal. PERITONEUM: No free intraperitoneal fluid or air. RETROPERITONEUM: No adenopathy. The aorta is normal. No atherosclerotic disease is identified. MUSCULOSKELETAL: The skeleton is intact. IMPRESSION: 1. Early hepatic cirrhosis. No liver mass seen. 2. Small right posterior liver cyst. 3. No evidence of portal hypertension. No ascites identified. 07/05/2015 - - Read by: Ade Cho MD Dictated Date/time: 07/05/15 13:14 Electronically Signed by: Ade Cho MD 07/05/15 13:22 FINAL REPORT [facility] VIRAL - SEROLOGY Influ A Negative (05/03/15 9:36 AM) Negative 05/03/2015 [facility] VIRAL - SEROLOGY Influ B Negative (05/03/15 9:36 AM) Negative 05/03/2015 [facility] Chest 2 views DX Chest 2 views DX PROCEDURE: Chest 2 views REASON FOR EXAM: See Clinic Indication CLINICAL INDICATION: Cough and fever COMPARISON: 09/19/2014. FINDINGS: No acute process. No focal consolidation, pleural effusion, or pneumothorax. Stable cardiac silhouette and mediastinum. SL: 12 05/03/2015 - - Read by: Pastor Contreras MD Dictated Date/time: 05/03/15 09:53 Electronically Signed by: Pastor Contreras MD 05/03/15 09:54 FINAL REPORT [facility] Brain wo contrast CT Brain wo contrast CT CT head without contrast. CLINICAL INDICATION: Weakness. COMPARISON: [None]. TECHNIQUE: Multiple contiguous axial images of the brain were performed without IV contrast. FINDINGS: Ventricles and subarachnoid spaces are appropriate for age. No acute territorial infarction or intracranial hemorrhage. No extra-axial fluid collection. Cota-white distinction is preserved. No mass, mass-effect, or midline shift. Visualized paranasal sinuses are unremarkable. IMPRESSION: No acute intracranial process detected. MRI brain if indicated. SL: 12 09/28/2014 - - Read by: Pastor Contreras MD Dictated Date/time: 09/28/14 21:46 Electronically Signed by: Pastor Contreras MD 09/28/14 21:47 FINAL REPORT [facility] CARDIAC ENZYMES Troponin-I null 0.00 - 0.40 09/19/2014 [facility] CARDIAC ENZYMES CK MB Index null 0.0 - 2.5 09/19/2014 [facility] CARDIAC ENZYMES CK MB null 0.5 - 3.6 09/19/2014 [facility] CARDIAC ENZYMES Total CK 289 unit/L 12 - 191 09/19/2014 [facility] ELECTROLYTES Potassium Lvl 4.7 meq/L 3.5 - 5.1 09/19/2014 [facility] ELECTROLYTES Sodium Lvl 138 meq/L 135 - 145 09/19/2014 [facility] ELECTROLYTES Chloride Lvl 105 meq/L 95 - 109 09/19/2014 [facility] ELECTROLYTES eGFR 110 mL/min/1.73m2 09/19/2014 1Result Comment: The eGFR is calculated using the CKD-EPI formula. In most young, healthy individuals the eGFR will be >90 mL/min/1.73m2. The eGFR declines with age. An eGFR of 60-89 may be normal in some populations, particularly the elderly, for whom the CKD-EPI formula has not been extensively validated. Use of the eGFR is not recommended in the following populations: Individuals with unstable creatinine concentrations, including patients and those with serious co-morbid conditions. Patients with extremes in muscle mass or diet. The data above are obtained from the National Kidney Disease Education Program (NKDEP) which additionally recommends that when the eGFR is used in patients with extremes of body mass index for purposes of drug dosing, the eGFR should be multiplied by the estimated BMI. [facility] ELECTROLYTES A/G Ratio 1.1 0.7 - 1.6 09/19/2014 [facility] ELECTROLYTES Globulin 3.6 g/dL 2.0 - 4.0 09/19/2014 [facility] ELECTROLYTES Alk Phos 106 unit/L 39 - 136 09/19/2014 [facility] ELECTROLYTES Bili Total 0.4 mg/dL 0.2 - 1.3 09/19/2014 [facility] ELECTROLYTES AGAP 12.7 meq/L 10.0 - 20.0 09/19/2014 [facility] ELECTROLYTES B/C Ratio 10 6 - 25 09/19/2014 [facility] ELECTROLYTES AST 85 unit/L 0 - 37 09/19/2014 [facility] ELECTROLYTES ALT 192 unit/L 0 - 65 09/19/2014 [facility] ELECTROLYTES CO2 25 meq/L 24 - 32 09/19/2014 [facility] ELECTROLYTES Calcium Lvl 8.8 mg/dL 8.5 - 10.5 09/19/2014 [facility] ELECTROLYTES Total Protein 7.7 g/dL 6.4 - 8.4 09/19/2014 [facility] ELECTROLYTES Albumin Lvl 4.1 g/dL 3.5 - 5.0 09/19/2014 [facility] ELECTROLYTES Creatinine Lvl 1.0 mg/dL 0.5 - 1.4 09/19/2014 [facility] ELECTROLYTES BUN 10 mg/dL 7 - 22 09/19/2014 [facility] ELECTROLYTES Glucose Lvl 184 mg/dL 70 - 99 09/19/2014 2Interpretive Data: Adult reference range values reflect the clinical guidelines of the [place] [employer]. [facility] HEMATOLOGY MCV 89.5 fL 80.0 - 94.0 09/19/2014 [facility] Hct 50.6 % 42.0 - 54.0 09/19/2014 [facility] Hgb 17.4 g/dL 14.0 - 18.0 09/19/2014 [facility] MCHC 34.4 g/dL 32.0 - 36.0 09/19/2014 [facility] MCH 30.8 pg 27.0 - 31.0 09/19/2014 [facility] Platelet 104 K/CMM 133 - 450 09/19/2014 [facility] RDW 13.2 % 11.5 - 14.5 09/19/2014 [facility] MPV 11.8 fL 7.4 - 10.4 09/19/2014 [facility] WBC 7.2 K/CMM 3.7 - 10.4 09/19/2014 [facility] RBC 5.65 M/CMM 4.70 - 6.10 09/19/2014 [facility] PTT 30.4 s 22.9 - 35.8 09/19/2014 4Interpretive Data: Heparin Therapeutic Range: 57 - 92 Seconds [facility] Basophils # 0.1 K/CMM 0.0 - 0.2 09/19/2014 [facility] Eosinophils # 0.2 K/CMM 0.0 - 0.5 09/19/2014 [facility] Lymphocytes # 3.9 K/CMM 1.0 - 5.5 09/19/2014 [facility] Monocytes # 0.4 K/CMM 0.0 - 0.8 09/19/2014 [facility] Basophils 1.1 % 0.0 - 1.0 09/19/2014 [facility] Segs-Bands # 2.7 K/CMM 1.5 - 8.1 09/19/2014 [facility] Eosinophils 2.6 % 0.0 - 4.0 09/19/2014 [facility] Monocytes 5.9 % 2.0 - 12.0 09/19/2014 [facility] Plt Morph Normal (09/19/14 6:15 PM) 09/19/2014 [facility] RBC Morph Normal (09/19/14 6:15 PM) 09/19/2014 [facility] Lymphocytes 53.5 % 20.0 - 40.0 09/19/2014 [facility] Segs 36.9 % 45.0 - 75.0 09/19/2014 [facility] PT 13.3 s 12.0 - 14.7 09/19/2014 [facility] INR 1.01 0.85 - 1.17 09/19/2014 3Interpretive Data: RECOMMENDED RANGES FOR PROTIME INR: 2.0-3.0 for most medical and surgical thromboembolic states. 2.5-3.5 for artificial heart valves and recurrent embolism. INR SHOULD BE USED ONLY FOR PATIENTS ON STABLE ANTICOAGULANT THERAPY. [facility] Chest 2 views DX Chest 2 views DX CHEST, PA AND LATERAL INDICATION: Chest pain. COMPARISON: None The heart, mediastinum, lungs, pleural spaces and visualized skeleton are not remarkable. IMPRESSION: Negative chest. SL: 12 09/19/2014 - - Read by: Naga Can MD Dictated Date/time: 09/19/14 19:01 Electronically Signed by: Naga Can MD 09/19/14 19:02 FINAL REPORT [facility] Abdomen complete w Abdominal Doppler US Abdomen complete w Abdominal Doppler US EXAM: US ABDOMEN COMPLETE DATE: July 06, 2014 INDICATION: Chronic hepatitis C. COMPARISON: Gallbladder ultrasound November 19, 2013, Complete ultrasound abdomen December 11, 2008. TECHNIQUE: Multiplanar grayscale and color Doppler ultrasound images of the abdomen were obtained. FINDINGS: Liver demonstrates normal echogenicity without masses. Right hepatic lobe measures 14.4 cm at the midclavicular line. Main portal vein is 9.6 mm with hepatopetal flow. Normal hepatopetal flow is demonstrated in the main portal vein as well as in the right and left branches. Pulsatile, hepatopetal flow is demonstrated in the hepatic artery. RI is 0.6. [<Normal hepatofugal flow is present in the right, middle, and left hepatic veins>. Gallbladder [<normal without gallstones>]. Gallbladder wall thickness is 1.8 mm. No sonographic Zuleta's sign or pericholecystic fluid. Visualized portions of the intrahepatic biliary tree are of normal caliber. Common duct is 3.4 mm. Spleen measures 10 cm. The splenic vein is patent. Splenic arterial waveform is normal. The pancreas is not imaged. Kidneys are normal in size, shape, and echotexture without masses or hydronephrosis. Right kidney measures 11 x 5.7 x 6.4 cm. Left kidney measures 11 x 6.4 x 6.4 cm. IMPRESSION: 1. Unremarkable grayscale and Doppler evaluation of the liver. 07/06/2014 - - Read by: Latoya Hill MD Dictated Date/time: 07/06/14 14:02 Electronically Signed by: Latoya Hill MD 07/06/14 14:17 FINAL REPORT [facility] CARDIAC ENZYMES Troponin-I null 0.00 - 0.40 11/19/2013 [facility] CHEM PANEL Amylase Lvl 71 unit/L 25 - 115 11/19/2013 [facility] CHEM PANEL Lipase Lvl 241 unit/L 73 - 393 11/19/2013 [facility] ELECTROLYTES AGAP 11.5 meq/L 10.0 - 20.0 11/19/2013 [facility] ELECTROLYTES Globulin 3.5 g/dL 2.0 - 4.0 11/19/2013 [facility] ELECTROLYTES B/C Ratio 13 6 - 25 11/19/2013 [facility] ELECTROLYTES A/G Ratio 1.2 0.7 - 1.6 11/19/2013 [facility] Total Protein 7.8 g/dL 6.4 - 8.4 11/19/2013 [facility] ELECTROLYTES Calcium Lvl 8.5 mg/dL 8.5 - 10.5 11/19/2013 [facility] ELECTROLYTES CO2 27 meq/L 24 - 32 11/19/2013 [facility] ELECTROLYTES AST 90 unit/L 0 - 37 11/19/2013 [facility] ELECTROLYTES ALT 229 unit/L 0 - 65 11/19/2013 [facility] Albumin Lvl 4.3 g/dL 3.5 - 5.0 11/19/2013 [facility] ELECTROLYTES Bili Total 0.4 mg/dL 0.2 - 1.3 11/19/2013 [facility] ELECTROLYTES Alk Phos 100 unit/L 39 - 136 11/19/2013 [facility] ELECTROLYTES eGFR 99 mL/min/1.73m2 11/19/2013 1Result Comment: The eGFR is calculated using the CKD-EPI formula. In most young, healthy individuals the eGFR will be >90 mL/min/1.73m2. The eGFR declines with age. An eGFR of 60-89 may be normal in some populations, particularly the elderly, for whom the CKD-EPI formula has not been extensively validated. Use of the eGFR is not recommended in the following populations: Individuals with unstable creatinine concentrations, including patients and those with serious co-morbid conditions. Patients with extremes in muscle mass or diet. The data above are obtained from the National Kidney Disease Education Program (NKDEP) which additionally recommends that when the eGFR is used in patients with extremes of body mass index for purposes of drug dosing, the eGFR should be multiplied by the estimated BMI. [facility] ELECTROLYTES Potassium Lvl 3.5 meq/L 3.5 - 5.1 11/19/2013 [facility] ELECTROLYTES Chloride Lvl 106 meq/L 95 - 109 11/19/2013 [facility] ELECTROLYTES Glucose Lvl 141 mg/dL 70 - 99 11/19/2013 2Interpretive Data: Adult reference range values reflect the clinical guidelines of the [place] [employer]. [facility] ELECTROLYTES Creatinine Lvl 1.1 mg/dL 0.5 - 1.4 11/19/2013 [facility] ELECTROLYTES BUN 14 mg/dL 7 - 22 11/19/2013 [facility] ELECTROLYTES Sodium Lvl 141 meq/L 135 - 145 11/19/2013 [facility] HEMATOLOGY MPV 12.2 fL 7.4 - 10.4 11/19/2013 [facility] [place] Hct 48.0 % 42.0 - 54.0 11/19/2013 [facility] [place] RBC 5.44 M/CMM 4.70 - 6.10 11/19/2013 [facility] [place] Hgb 16.7 g/dL 14.0 - 18.0 11/19/2013 [facility] [place] RDW 13.4 % 11.5 - 14.5 11/19/2013 [facility] [place] Platelet 102 K/CMM 133 - 450 11/19/2013 [facility] [place] MCH 30.7 pg 27.0 - 31.0 11/19/2013 [facility] [place] MCHC 34.8 g/dL 32.0 - 36.0 11/19/2013 [facility] [place] MCV 88.2 fL 80.0 - 94.0 11/19/2013 [facility] [place] WBC 6.9 K/CMM 3.7 - 10.4 11/19/2013 [facility] [place] Eosinophils # 0.1 K/CMM 0.0 - 0.5 11/19/2013 [facility] [place] Monocytes # 0.4 K/CMM 0.0 - 0.8 11/19/2013 [facility] [place] Giant Plt Slight *ABN* (11/19/13 5:31 PM) None Seen 11/19/2013 [facility] [place] Basophils # 0.1 K/CMM 0.0 - 0.2 11/19/2013 [facility] [place] Segs-Bands # 2.3 K/CMM 1.5 - 8.1 11/19/2013 [facility] [place] Lymphocytes # 4.0 K/CMM 1.0 - 5.5 11/19/2013 [facility] [place] RBC Morph Normal (11/19/13 5:31 PM) 11/19/2013 [facility] [place] Segs 32.7 % 45.0 - 75.0 11/19/2013 [facility] [place] Lymphocytes 57.9 % 20.0 - 40.0 11/19/2013 [facility] [place] Monocytes 6.3 % 2.0 - 12.0 11/19/2013 [facility] [place] Eosinophils 1.9 % 0.0 - 4.0 11/19/2013 [facility] HEMATOLOGY Basophils 1.2 % 0.0 - 1.0 11/19/2013 [facility] URINE AND STOOL UA Nitrite Negative (11/19/13 5:31 PM) Negative 11/19/2013 [facility] URINE AND STOOL UA Leuk Est Negative (11/19/13 5:31 PM) Negative 11/19/2013 [facility] URINE AND STOOL UA RBC 3 /HPF 0 - 2 11/19/2013 [facility] URINE AND STOOL UA Blood Negative (11/19/13 5:31 PM) Negative 11/19/2013 [facility] URINE AND STOOL UA Urobilinogen 4.0 mg/dL 0.1 - 1.0 11/19/2013 [facility] URINE AND STOOL UA Mucus Few /LPF None Seen /LPF 11/19/2013 [facility] URINE AND STOOL UA Sq Epi Occasional /LPF Few /LPF 11/19/2013 [facility] URINE AND STOOL UA WBC 2 /HPF 0 - 5 11/19/2013 [facility] URINE AND STOOL UA Bili Negative *NA* (11/19/13 5:31 PM) Negative 11/19/2013 [facility] URINE AND STOOL UA Turbidity Clear (11/19/13 5:31 PM) Clear 11/19/2013 [facility] URINE AND STOOL UA Color Yellow *NA* (11/19/13 5:31 PM) Yellow 11/19/2013 [facility] URINE AND STOOL UA Spec Grav 1.030 <=1.030 11/19/2013 [facility] URINE AND STOOL UA Protein Negative mg/dL Negative mg/dL 11/19/2013 [facility] URINE AND STOOL UA pH 5.0 5.0 - 8.0 11/19/2013 [facility] URINE AND STOOL UA Ketones Negative mg/dL Negative mg/dL 11/19/2013 [facility] URINE AND STOOL UA Glucose Negative mg/dL Negative mg/dL 11/19/2013 [facility] Gallbladder US Gallbladder US PROCEDURE: Gall Bladder US REASON FOR EXAM: See Clinic Indication CLINICAL INFORMATION: Abdominal pain, RUQ COMPARISON: None available FINDINGS: The pancreas body is normal. The head and tail are obscured by bowel gas. The liver is normal in size, shape, and echotexture without focal lesions. No intrahepatic biliary dilation is identified. The gallbladder is without stones, pericholecystic fluid or abnormal wall thickness. The common hepatic duct is normal in caliber and measures 4 mm. The right kidney measures 12.2 x 6.4 x 5.9 cm and shows normal corticomedullary differentiation; there is no hydronephrosis. IMPRESSION: Normal. SL: 12 11/19/2013 - - Read by: Kit Rice MD Dictated Date/time: 11/19/13 20:42 Electronically Signed by: Kit Rice MD 11/19/13 20:43 FINAL REPORT [facility] Vital Signs Vital Sign Value Date Comments Source Height 182.88 cm 12/08/2017 [facility] BMI Calculated 32.37 12/08/2017 [facility] Weight 108.273 12/08/2017 [facility] Systolic (mm Hg) 117 12/08/2017 [facility] Diastolic (mm Hg) 68 12/08/2017 [facility] Heart Rate 81 12/08/2017 [facility] Respitory Rate 16 12/08/2017 [facility] BMI Calculated 33 11/23/2017 [facility] Weight 110.364 11/23/2017 [facility] Height 182.88 cm 11/23/2017 [facility] Respitory Rate 16 11/23/2017 [facility] Systolic (mm Hg) 117 11/23/2017 [facility] Diastolic (mm Hg) 74 11/23/2017 [facility] Heart Rate 80 11/23/2017 [facility] Height 182.88 cm 04/20/2017 [facility] BMI Calculated 31.8 04/20/2017 [facility] Weight 106.364 04/20/2017 [facility] Respitory Rate 16 04/20/2017 [facility] Heart Rate 79 04/20/2017 [facility] Systolic (mm Hg) 132 04/20/2017 [facility] Diastolic (mm Hg) 84 04/20/2017 [facility] Weight 103.182 09/14/2016 [facility] BMI Calculated 31.73 09/14/2016 [facility] Height 180.34 cm 09/14/2016 [facility] Heart Rate 65 09/14/2016 [facility] Respitory Rate 16 09/14/2016 [facility] Systolic (mm Hg) 119 09/14/2016 [facility] Diastolic (mm Hg) 76 09/14/2016 [facility] Weight 104.545 05/17/2016 [facility] BMI Calculated 31.26 05/17/2016 [facility] Height 182.88 cm 05/17/2016 [facility] Temperature Oral (F) 98.0 F 05/17/2016 [facility] Heart Rate 72 05/17/2016 [facility] Respitory Rate 12 05/17/2016 [facility] Systolic (mm Hg) 136 05/17/2016 [facility] Diastolic (mm Hg) 82 05/17/2016 [facility] BMI Calculated 32.55 02/17/2016 [facility] Weight 108.864 02/17/2016 [facility] Height 182.88 cm 02/17/2016 [facility] Heart Rate 75 02/17/2016 [facility] Temperature Oral (F) 98.1 F 02/17/2016 [facility] Systolic (mm Hg) 137 02/17/2016 [facility] Diastolic (mm Hg) 88 02/17/2016 [facility] Temperature Oral (F) 98.1 F 12/22/2015 [facility] Systolic (mm Hg) 127 12/22/2015 [facility] Diastolic (mm Hg) 77 12/22/2015 [facility] Respitory Rate 17 12/22/2015 [facility] Systolic (mm Hg) 145 12/22/2015 [facility] Diastolic (mm Hg) 103 12/22/2015 [facility] Heart Rate 63 12/22/2015 [facility] Respitory Rate 18 12/22/2015 [facility] Temperature Oral (F) 98.2 F 12/22/2015 [facility] Systolic (mm Hg) 155 12/22/2015 [facility] Diastolic (mm Hg) 95 12/22/2015 [facility] Heart Rate 87 12/22/2015 [facility] Temperature Oral (F) 98.2 F 12/22/2015 [facility] Respitory Rate 18 12/22/2015 [facility] Weight 115.455 12/22/2015 [facility] Respitory Rate 20 09/05/2015 [facility] Systolic (mm Hg) 140 09/05/2015 [facility] Diastolic (mm Hg) 60 09/05/2015 [facility] Temperature Oral (F) 98.6 F 09/05/2015 [facility] Heart Rate 95 09/05/2015 [facility] Temperature Oral (F) 99.0 F 09/05/2015 [facility] Height 182.88 cm 09/04/2015 [facility] BMI Calculated 32.62 09/04/2015 [facility] Weight 109.091 09/04/2015 [facility] Respitory Rate 20 09/04/2015 [facility] Heart Rate 104 09/04/2015 [facility] Temperature Oral (F) 102.5 F 09/04/2015 [facility] Systolic (mm Hg) 147 09/04/2015 [facility] Diastolic (mm Hg) 91 09/04/2015 [facility] Weight 108.295 07/18/2015 [facility] Temperature Oral (F) 98.1 F 07/18/2015 [facility] Heart Rate 74 07/18/2015 [facility] Height 182.88 cm 07/18/2015 [facility] BMI Calculated 32.38 07/18/2015 [facility] Systolic (mm Hg) 130 07/18/2015 [facility] Diastolic (mm Hg) 84 07/18/2015 [facility] Diastolic (mm Hg) 90 05/03/2015 [facility] Systolic (mm Hg) 140 05/03/2015 [facility] Temperature Oral (F) 97.8 F 05/03/2015 [facility] Respitory Rate 19 05/03/2015 [facility] Heart Rate 90 05/03/2015 [facility] Weight 109.091 05/03/2015 [facility] BMI Calculated 32.62 05/03/2015 [facility] Height 182.88 cm 05/03/2015 [facility] Temperature Oral (F) 97.8 F 05/03/2015 [facility] Respitory Rate 18 05/03/2015 [facility] Heart Rate 91 05/03/2015 [facility] Systolic (mm Hg) 146 05/03/2015 [facility] Diastolic (mm Hg) 94 05/03/2015 [facility] Weight 109.205 04/04/2015 [facility] Height 182.88 cm 04/04/2015 [facility] BMI Calculated 32.65 04/04/2015 [facility] Heart Rate 68 04/04/2015 [facility] Temperature Oral (F) 97.8 F 04/04/2015 [facility] Systolic (mm Hg) 134 04/04/2015 [facility] Diastolic (mm Hg) 88 04/04/2015 [facility] BMI Calculated 32.94 10/02/2014 [facility] Temperature Oral (F) 98.7 F 10/02/2014 [facility] Weight 110.17 10/02/2014 [facility] Systolic (mm Hg) 134 10/02/2014 [facility] Diastolic (mm Hg) 89 10/02/2014 [facility] Height 182.88 cm 10/02/2014 [facility] Temperature Oral (F) 98 F 09/29/2014 [facility] Systolic (mm Hg) 136 09/29/2014 [facility] Diastolic (mm Hg) 90 09/29/2014 [facility] Heart Rate 78 09/29/2014 [facility] Respitory Rate 18 09/29/2014 [facility] Weight 104.545 09/29/2014 [facility] BMI Calculated 31.26 09/29/2014 [facility] Height 182.88 cm 09/29/2014 [facility] Systolic (mm Hg) 162 09/29/2014 [facility] Diastolic (mm Hg) 105 09/29/2014 [facility] Temperature Oral (F) 98 F 09/29/2014 [facility] Heart Rate 71 09/29/2014 [facility] Respitory Rate 20 09/29/2014 [facility] Respitory Rate 20 09/20/2014 [facility] Temperature Oral (F) 98.0 F 09/20/2014 [facility] Systolic (mm Hg) 139 09/20/2014 [facility] Diastolic (mm Hg) 89 09/20/2014 [facility] Heart Rate 67 09/20/2014 [facility] Temperature Oral (F) 98.0 F 09/19/2014 [facility] Respitory Rate 18 09/19/2014 [facility] Systolic (mm Hg) 149 09/19/2014 [facility] Diastolic (mm Hg) 92 09/19/2014 [facility] Heart Rate 76 09/19/2014 [facility] Weight 113.636 09/19/2014 [facility] Height 182.88 cm 09/19/2014 [facility] BMI Calculated 33.98 09/19/2014 [facility] Diastolic (mm Hg) 96 06/19/2014 [facility] Systolic (mm Hg) 145 06/19/2014 [facility] Heart Rate 89 06/19/2014 [facility] Weight 11.3 06/19/2014 [facility] BMI Calculated 3.38 06/19/2014 [facility] Height 182.88 cm 06/19/2014 [facility] Diastolic (mm Hg) 84 11/20/2013 [facility] Systolic (mm Hg) 138 11/20/2013 [facility] Respitory Rate 18 11/20/2013 [facility] Temperature Oral (F) 98.3 F 11/20/2013 [facility] Heart Rate 78 11/20/2013 [facility] Heart Rate 86 11/20/2013 [facility] Respitory Rate 18 11/20/2013 [facility] Systolic (mm Hg) 139 11/20/2013 [facility] Diastolic (mm Hg) 89 11/20/2013 [facility] Temperature Oral (F) 98.2 F 11/20/2013 [facility] Weight 100 11/19/2013 [facility] Height 180.34 cm 11/19/2013 [facility] BMI Calculated 30.75 11/19/2013 [facility] Heart Rate 87 11/19/2013 [facility] Respitory Rate 18 11/19/2013 [facility] Temperature Oral (F) 98.1 F 11/19/2013 [facility] Systolic (mm Hg) 150 11/19/2013 [facility] Diastolic (mm Hg) 97 11/19/2013 [facility] Diastolic (mm Hg) 81 08/11/2011 [facility] Respitory Rate 15 08/11/2011 [facility] Systolic (mm Hg) 130 08/11/2011 [facility] Heart Rate 73 08/11/2011 [facility] Height 184.00 cm 08/11/2011 [facility] Weight 113.500 08/11/2011 [facility] Encounters Location Location Details Encounter Type Encounter Number Reason For Visit Attending Provider ADM Date DC Date Status Source [facility] Outpatient [id number] HEP C SUSY HERNANDEZ 08/11/2011 Active [facility] Emergency [id number] HIGH BLOOD PRESSURE ANDREW SANTIZO 09/26/2012 09/27/2012 Active [facility] [id number] Rusty Devi 11/19/2013 11/20/2013 [facility] Outpatient [id number] Susy Hernandez 06/19/2014 06/20/2014 [facility] Outpatient [facility] Diag Services [id number] Susy Hernandez 07/06/2014 07/07/2014 [facility]N [facility] Emergency [facility] [id number] Kaye Gtz 09/19/2014 09/20/2014 [facility] [id number] Frank Forbes 09/29/2014 09/29/2014 [facility] Outpatient [id number] Susy Hernandez 10/02/2014 10/03/2014 [facility] Outpatient [id number] Nancie Laughlin 04/04/2015 04/05/2015 [facility] Bedded Outpatient [id number] Susy Hernandez 04/24/2015 04/24/2015 [facility] Emergency Center [id number] Nathaniel Falcon 05/03/2015 05/03/2015 [facility] Outpatient [id number] Lina John 07/05/2015 07/06/2015 [facility]DC Outpatient [id number] Nancie Laughlin 07/18/2015 07/19/2015 [facility] Emergency [facility] [id number] Cara Chowqi 09/04/2015 09/05/2015 [facility] Outpatient [id number] Susy Hernandez 10/30/2015 10/31/2015 [facility] Emergency [facility] [id number] Kaye Gtz 12/22/2015 12/22/2015 [facility] Outpatient [id number] Nancie Laughlin 02/17/2016 02/18/2016 [facility] Outpatient Imaging [place] [facility] [id number] Nancie Laughlin 03/06/2016 03/07/2016 [facility]DC Outpatient [id number] Connor Dumont 03/09/2016 03/10/2016 [facility] Emergency [id number] Ana Astudillo 05/17/2016 05/18/2016 [facility] Outpatient [id number] Connor Dumont 09/01/2016 09/02/2016 [facility] Outpatient [id number] Connor Dumont 09/14/2016 09/15/2016 [facility] Outpatient Imaging [facility] Out[facility] [id number] Ashley Torres 03/16/2017 03/17/2017 [facility] EDDC Outpatient [id number] Connor Dumont 04/20/2017 04/21/2017 [facility] Outpatient [facility] [place] [facility] Di[facility] [id number] Connor Dumont 09/22/2017 09/23/2017 [facility] EDDC Outpatient [id number] Connor Dumont 11/23/2017 11/24/2017 [facility] EDDC Outpatient [id number] Robbie Houston 12/08/2017 12/09/2017 [facility] Procedures Procedure Code Date Perfomer Comments Source
[2018-07-29 12:39] LABS: STREPTOCOCCUS GRP A ANTIGEN NEGATIVE (NEGATIVE)
[2018-07-29 12:49] LABS: INFLUENZAE A&B ANTIGEN (RAPID) NEGATIVE (NEGATIVE)
[2018-07-29 13:05] VITALS: BP 137/90
== END 2018-07-29 13:12 | disposition home or self-care (01) ==
LOC: ER 11:57
DX: R05 Cough (principal); J01.00 Acute maxillary sinusitis, unspecified; J01.10 Acute frontal sinusitis, unspecified; I10 Essential (primary) hypertension; E11.9 Type 2 diabetes mellitus without complications; E78.5 Hyperlipidemia, unspecified
CPT/HCPCS: 83518; 87070; 87400; 99282